=== PATIENT | male | born 1955 | race Caucasian/White ===

== ENCOUNTER 2017-05-01 13:52 | Inpatient (IN) | payer OTHER ==
[~2017-05-01] VITALS: Ht 180.3 cm; Wt 128.0 kg
[~2017-05-01 13:52] MED LIST: ALLO300T2 PO; CHOL100027 PO; FENO145T26 PO; HYDR-4717 PO; LSN/20125 PO; METO-551 PO; POTA-327 PO; SIMV20TA2 PO
[2017-05-01] MEDS ORDERED: SODIUM CHLORIDE 0.9% 1000ML 2,000 ML IV STA (14:01)
--- NOTE | 2017-05-01 14:37 | EMERGENCY ROOM VISIT NOTE ---
History Report prepared by Ector: Steven Bay Under the Supervision of: Dr. Lucas Cheng M.D. First contact with patient: 13:59 Chief Complaint: HYPERGLYCEMIA Stated Complaint: HYPERGLYCEMIA History of Present Illness The patient is a 61 year old male who presents to the Emergency Room with complaints of intermittent lightheadedness beginning two months ago. He was seen by his PCP just prior to arrival for his symptoms and had blood work done. His blood sugar was found to be 712 at this time. The patient has no known history of diabetes. He states that he has been drinking a lot of water, and urinating very frequently. His lightheadedness is worsened with changing positions, especially standing up. The patient denies new cough or leg swelling. He is not on any blood thinners. He has a history of HTN and hyperlipidemia. Source of History: patient Onset: Two months ago Quality: other (lightheadedness) Timing: intermittent Modifying Factors (Worsening): other (changing position) Associated Symptoms: No cough (new) Note: The patient denies leg swelling. Review of Systems See HPI for pertinent positives & negatives. A total of 10 systems reviewed and were otherwise negative. Past Medical & Surgical Medical Problems: (1) CKD (chronic kidney disease), stage III (2) DKA (diabetic ketoacidoses) (3) HLD (hyperlipidemia) (4) HTN (hypertension) (5) GISELE (obstructive sleep apnea) Surgical Problems: (1) History of ureter stent (2) History of ureter stent (3) Hx of carpal tunnel repair (4) Hx of carpal tunnel repair (5) Hx of cervical spine surgery (6) Hx of cholecystectomy (7) Hx of cholecystectomy (8) Hx of lumbosacral spine surgery (9) Hx of nasal septoplasty (10) Hx of ventral hernia repair (11) Hx of ventral hernia repair Family History No pertinent family history stated. Social History Smoking Status: Never Smoker Marital Status: Current/Historical Medications Scheduled Allopurinol (Zyloprim), 450 MG PO DAILY Atorvastatin (Lipitor), 10 MG PO DAILY Cholecalciferol (Vitamin D), 2,000 UNITS PO DAILY Diltiazem HCl Coated Beads (Diltiazem HCl ER), 300 MG PO QPM Doxazosin Mesylate (Cardura), 8 MG PO HS Fenofibrate (Tricor ), 145 MG PO DAILY Fluticasone Propionate (Nasal) (Flonase Allergy Relief), 2 SPRAY NA DAILY Furosemide (Lasix), 20 MG PO DAILY Gabapentin (Neurontin), 100 MG PO BID Hydralazine Hcl (Apresoline), 100 MG PO BID Lisinopril (Zestril), 40 MG PO DAILY Sildenafil Citrate (Revatio), 60 MG PO UD Scheduled PRN Hkqecrm-Eclrozkorexjl-Vbmfrybs (Excedrin Migraine), 1-2 TAB PO DAILY PRN for Migraine Sumatriptan Succinate (Imitrex), 50 MG PO PRN PRN for Migraine Allergies Coded Allergies: Propranolol (Verified Adverse Reaction, Unknown, nausea (per gmg office note), 05/01/17) Physical Exam Vital Signs Date Time Temp Pulse Resp B/P (MAP) Pulse Ox O2 Delivery O2 Flow Rate FiO2 05/01/17 16:00 76 18 164/102 95 Room Air 05/01/17 14:27 78 05/01/17 14:26 81 209/118 76 201/123 94 176/130 05/01/17 14:22 94 Room Air 05/01/17 13:56 36.9 96 18 202/107 94 Room Air Physical Exam GENERAL: Patient is in no acute distress. HEENT: No acute trauma, normocephalic atraumatic, mucous membranes markedly dry , no nasal congestion, no scleral icterus. NECK: No stridor, no adenopathy, no meningismus, trachea is midline. LUNGS: Clear to auscultation bilaterally, no wheeze, no rhonchi, breath sounds equal. HEART: Without murmurs gallops or rubs, regular rate and rhythm. ABDOMEN: Soft, nontender, bowel sounds positive, no hernias, no peritonitis. EXTREMITIES: No cyanosis or edema, full range of motion of all the joints without pain or difficulty, no signs for acute trauma. NEUROLOGIC: Oriented x 3, no acute motor or sensory deficits, no focal weakness. SKIN: No rash, no jaundice, no diaphoresis. Medical Decision & Procedures ER Provider Diagnostic Interpretation: X-ray results as stated below per interpretation by me and the radiologist: CHEST ONE VIEW PORTABLE FINDINGS: The heart is mildly enlarged. The lungs are clear. No pleural effusions. No pneumothorax. No evidence for pulmonary edema. IMPRESSION: Mild cardiomegaly. Electronically signed by: Ramon Arrington M.D. 05/01/2017 2:37 PM Orthostatic vital signs are positive. Laboratory Results 05/01/17 14:10 Test 05/01/17 14:10 05/01/17 14:45 RDW Standard Deviation 42.7 fL (36.4-46.3) RDW Coefficient of Variation 13.9 % (11.5-14.5) White Blood Count 7.96 K/uL (4.8-10.8) Red Blood Count 5.11 M/uL (4.7-6.1) Hemoglobin 15.3 g/dL (14.0-18.0) Hematocrit 43.1 % (42-52) Mean Corpuscular Volume 84.3 fL (80-100) Mean Corpuscular Hemoglobin 29.9 pg (25-34) Mean Corpuscular Hemoglobin Concent 35.5 g/dl (32-36) Platelet Count 170 K/uL (130-400) Mean Platelet Volume 10.8 fL (7.4-10.4) Neutrophils (%) (Auto) 89.5 % Lymphocytes (%) (Auto) 5.8 % Monocytes (%) (Auto) 3.8 % Eosinophils (%) (Auto) 0.3 % Basophils (%) (Auto) 0.1 % Neutrophils # (Auto) 7.13 K/uL (1.4-6.5) Lymphocytes # (Auto) 0.46 K/uL (1.2-3.4) Monocytes # (Auto) 0.30 K/uL (0.11-0.59) Eosinophils # (Auto) 0.02 K/uL (0-0.5) Basophils # (Auto) 0.01 K/uL (0-0.2) Immature Granulocyte % (Auto) 0.5 % Immature Granulocyte # (Auto) 0.04 K/uL (0.00-0.02) Anion Gap 15.0 mmol/L (3-11) Est Creatinine Clear Calc Drug Dose 53.1 ml/min Estimated GFR () 41.6 Estimated GFR (Non- 35.9 BUN/Creatinine Ratio 18.8 (10-20) Calcium Level 9.8 mg/dl (8.5-10.1) Phosphorus Level 4.5 mg/dl (2.5-4.9) Magnesium Level 2.3 mg/dl (1.8-2.4) Total Bilirubin 0.6 mg/dl (0.2-1) Aspartate Amino Transf (AST/SGOT) 10 U/L (15-37) Alanine Aminotransferase (ALT/SGPT) 39 U/L (12-78) Alkaline Phosphatase 101 U/L (45-117) Troponin I < 0.015 ng/ml (0-0.045) Total Protein 7.9 gm/dl (6.4-8.2) Albumin 4.1 gm/dl (3.4-5.0) Globulin 3.8 gm/dl (2.5-4.0) Albumin/Globulin Ratio 1.1 (0.9-2) Beta-Hydroxybutyric Acid 22.58 mg/dL (0.2-2.81) Thyroid Stimulating Hormone (TSH) 0.699 uIu/ml (0.300-4.500) Urine Color YELLOW Urine Appearance CLEAR (CLEAR) Urine pH 5.0 (4.5-7.5) Urine Specific [place] 1.040 (1.000-1.030) Urine Protein TRACE (NEG) Urine Glucose (UA) 3+ (NEG) Urine Ketones TRACE (NEG) Urine Occult Blood NEG (NEG) Urine Nitrite NEG (NEG) Urine Bilirubin NEG (NEG) Urine Urobilinogen NEG (NEG) Urine Leukocyte Esterase NEG (NEG) Urine WBC (Auto) 1-5 /hpf (0-5) Urine RBC (Auto) 0-4 /hpf (0-4) Urine Hyaline Casts (Auto) 0 /lpf (0-5) Urine Epithelial Cells (Auto) 5-10 /lpf (0-5) Urine Bacteria (Auto) NEG (NEG) Laboratory results reviewed by me. Medications Administered Medications (Trade) Dose Ordered Sig/Tsering Route Start Time Stop Time Status Last Admin Dose Admin Sodium Chloride 2,000 ml @ 999 mls/hr Q2H1M STAT IV 05/01/17 14:01 05/01/17 16:01 DC 05/01/17 14:31 999 MLS/HR Insulin Human Regular (novoLIN-R U-100 PER UNIT) 10 units NOW STAT IV 05/01/17 15:37 05/01/17 15:38 DC 05/01/17 15:49 10 UNITS Insulin Human Regular (novoLIN-R U-100 PER UNIT) 10 units NOW STAT IV 05/01/17 16:27 05/01/17 16:28 DC 05/01/17 17:05 10 UNITS ECG Indication: other (lightheadedness) Rate (beats per minute): 84 Rhythm: normal sinus Findings: RBBB, no ectopy, other (possible old inferior infarct) Comparison ECG Date: no prior available ED Course 1400: The patient was evaluated in room A12B. A complete history and physical exam was performed. 1401: Ordered Sodium Chloride 2000 ml @ 999 mls/hr IV. 1537: Ordered Novolin-R U-100 per unit 10 units IV. 1612: I reassessed the patient. He is unsure if he is willing to stay in the hospital. 1627: Ordered Novolin-R U-100 per unit 10 units IV. 1700: Upon reexamination the patient is resting comfortably. I discussed results and treatment plan with the patient. He verbalizes agreement and understanding. The patient will be evaluated for further management. Medical Decision The patient is a 61 year old male who presents to the ED with complaints of intermittent lightheadedness and hyperglycemia. Differential diagnoses considered include dehydration, electrolyte imbalance, DKA, hyperglycemia, infection, renal failure, pneumonia and orthostasis. There is no leukocytosis or concerning anemia. Renal panel testing does show some acute renal failure/dehydration. Sugar was quite high at over 600. No hepatitis. EKG shows a normal sinus rhythm with a right bundle branch block. No acute ischemia. Chest x-ray does not show pneumonia or CHF. Cardiac enzyme testing times one is not consistent with acute cardiac injury. Urinalysis does not show evidence for infection. The patient appears to be in a euthyroid state. On exam, the patient was not febrile or toxic. He appeared quite dehydrated clinically. Patient received 2 L of IV saline, he received IV insulin and then a second dose of IV insulin. Blood sugar is now around 500. Given the acute renal failure/dehydration, given the persistent hyperglycemia, given the new diagnosis of diabetes, a hospital stay was felt warranted. I spoke to the patient and the rn field case manager. The on-call hospitalist was consulted. The patient states he is feeling somewhat improved. Medication Reconcilliation Current Medication List: was personally reviewed by me Blood Pressure Screening Patient's blood pressure: Elevated blood pressure Blood pressure disposition: Referred to PCP Consults Time Called: [phone] Consulting Physician: María Elenagualberto Stark Returned Call: 1700 Discussed the patient's case. The patient will be evaluated for further management. Impression Primary Impression: Acute renal failure Additional Impressions: Hyperglycemia Dehydration HTN (hypertension) Scribe Attestation The scribe's documentation has been prepared under my direction and personally reviewed by me in its entirety. I confirm that the note above accurately reflects all work, treatment, procedures, and medical decision making performed by me. Departure Information Dispostion Being Evaluated By Hospitalist Referrals Kavon Mcleod D.O. (PCP) Patient Instructions My [facility] Problem Qualifiers
--- NOTE | 2017-05-01 14:39 | DIAGNOSTIC IMAGING REPORT ---
CHEST ONE VIEW PORTABLE HISTORY: EVALUATE ALTERED MENTAL STATUS/WEAKNESS COMPARISON: None. FINDINGS: The heart is mildly enlarged. The lungs are clear. No pleural effusions. No pneumothorax. No evidence for pulmonary edema. IMPRESSION: Mild cardiomegaly. Electronically signed by: Ramon Arrington M.D. 05/01/2017 2:37 PM Dictated Date/Time: 05/01/2017 2:35 PM
[2017-05-01 14:40] LABS: BASO % 0.1 %; BASO ABS # 0.01 K/uL (0-0.2); COMPLETE YES; EOS % 0.3 %; HEMATOCRIT 43.1 % (42-52); IG% 0.5 %; LYMPH % 5.8 %; LYMPH ABS # 0.46 K/uL (1.2-3.4); MEAN CELL VOLUME 84.3 fL (80-100); MEAN CORPUSCULAR HEMOGLOBIN 29.9 pg (25-34); MEAN CORPUSCULAR HGB CONC 35.5 g/dl (32-36); MEAN PLATELET VOLUME 10.8 fL (7.4-10.4); MONO % 3.8 %; NEUT % 89.5 %; PLATELET COUNT 170 K/uL (130-400); RED BLOOD COUNT 5.11 M/uL (4.7-6.1); WHITE BLOOD COUNT 7.96 K/uL (4.8-10.8)
[2017-05-01] MEDS ORDERED: ATOR10TA82 PO (14:55)
[2017-05-01] MEDS ORDERED: LISI40TA PO (14:55)
[2017-05-01] MEDS ORDERED: GABA-112 PO (14:55)
[2017-05-01] MEDS ORDERED: CHOL100010 PO (14:55)
[2017-05-01] MEDS ORDERED: HYDR100T12 PO (14:55)
[2017-05-01] MEDS ORDERED: ASPI-390 PO (14:55)
[2017-05-01] MEDS ORDERED: DOXA4TAB2 PO (14:55)
[2017-05-01] MEDS ORDERED: DILT1TAB52 PO (14:55)
[2017-05-01] MEDS ORDERED: FENO145T26 PO (14:55)
[2017-05-01] MEDS ORDERED: SILD1TAB25 PO (14:55)
[2017-05-01] MEDS ORDERED: FLUT0.15 (14:55)
[2017-05-01] MEDS ORDERED: ALLO300T2 PO (14:55)
[2017-05-01] MEDS ORDERED: SUMA50TA15 PO (14:55)
[2017-05-01] MEDS ORDERED: FURO-85 PO (14:55)
[2017-05-01 15:17] LABS: ALB/GLOB RATIO 1.1 (0.9-2); ALKALINE PHOSPHATASE 101 U/L (45-117); ALT/SGPT 39 U/L (12-78); AST/SGOT 10 U/L (15-37); BLOOD UREA NITROGEN 37 mg/dl (7-18); BUN/CREATININE RATIO 18.8 (10-20); CALCIUM 9.8 mg/dl (8.5-10.1); CARBON DIOXIDE 20 mmol/L (21-32); CHLORIDE 100 mmol/L (98-107); CREATININE 1.97 mg/dl (0.60-1.40); GLUCOSE 667 mg/dl (70-99); MAGNESIUM 2.3 mg/dl (1.8-2.4); POTASSIUM 3.9 mmol/L (3.5-5.1); SODIUM 135 mmol/L (136-145); THYROID STIMULATING HORMONE 0.699 uIu/ml (0.300-4.500)
[2017-05-01 15:27] LABS: URINE APPEARANCE CLEAR (CLEAR); URINE BILIRUBIN NEG (NEG); URINE COLOR YELLOW; URINE NITRITE NEG (NEG); UROBILINOGEN NEG (NEG); ZZUR CULT IF INDIC CLEAN CATCH NO
[2017-05-01 15:29] LABS: BETA-HYDROXYBUTYRATE 22.58 mg/dL (0.2-2.81)
[2017-05-01 15:30] LABS: MANUAL MICROSCOPIC REQUIRED? NO; REVIEW REQ? NO
[2017-05-01] MEDS ORDERED: NovoLIN-R INSULIN PER UNIT CHARGE IV STA ×2 (15:37→16:27)
[2017-05-01] MEDS ORDERED: PHARMACY GLYCEMIC MGMT CONSULT PRN (17:45)
[2017-05-01] MEDS ORDERED: PENDING NSS+20mEq KCL IVF SCH (17:45)
[2017-05-01] MEDS ORDERED: MODERATE STRESS LEVEL ONE (17:45)
[2017-05-01] MEDS ORDERED: PENDING D5NS+20mEq KCL IVF SCH (17:45)
[2017-05-01] MEDS ORDERED: DKA GOAL RANGE 150-250 mg/dl 1 EA ONE (17:45)
[2017-05-01] MEDS ORDERED: INSULIN IV INFUSION PROTOCOL SCH (17:48)
[2017-05-01] MEDS ORDERED: NSS + 20MEQ KCL 1000ML 1,000 ML IV SCH ×2 (18:00→18:15)
[2017-05-01] MEDS ORDERED: GLUCAGON FOR INJ 1 MG VIAL SQ PRN (18:15)
[2017-05-01] MEDS ORDERED: GLUCOSE 10 TABS/TUBE PO PRN (18:15)
[2017-05-01] MEDS ORDERED: GLUCOSE 40% GEL 15 GM TUBE PO PRN (18:15)
[2017-05-01] MEDS ORDERED: DEXTROSE 50% 50 ML SYR IV PRN (18:15)
[2017-05-01 18:30] VITALS: BP 158/104; PULSE 77; TEMP 36.9; O2SAT 97; BMI 38.7
[2017-05-01] MEDS ORDERED: INSULIN HUMAN REGULAR IV BOLUS 3 UNIT in SYRINGE 0 ML IV ONE (18:45)
[2017-05-01 18:48] LABS: ARTERIAL BLD GAS O2 SATURATION 94.4 % (90-95); ARTERIAL BLOOD GAS BASE EXCESS -0.3 mEq/L (-9-1.8); ARTERIAL BLOOD GAS HCO3 24 mmol/L (19-24); ARTERIAL BLOOD GAS PO2 72 mm/Hg (80-95); ARTERIAL BLOOD GAS pH 7.43 (7.35-7.45)
[2017-05-01 18:49] LABS: ALLEN TEST POS (POS); O2 ADMINISTRATION ROOM AIR
[2017-05-01] MEDS: INSULIN REGULAR 250 UNITS in SODIUM CHLORIDE 0.9% 250ML 250 ML IV SCH ×4 (18:56→22:01)
[2017-05-01 19:06] LABS: PHOSPHORUS 4.5 mg/dl (2.5-4.9)
--- NOTE | 2017-05-01 19:33 | History and Physical ---
History & Physical Date & Time of Service: May 01, 2017 at 18:03 Chief Complaint: Hyperglycemia Primary Care Physician: Kavon Mcleod D.O. History of Present Illness Source: patient, spouse, clinic records, hospital records Pt is 61y/o M with PMH obesity, HTN, dyslipidemia, gout, GISELE, CKD stage III, chronic MEDEROS's presented to ER from PCP office with c/o elevated blood sugar. No hx prior DM. Pt states past 2 months with intermittent dizziness and ill sensation. Past 3-4 weeks with polydipsia, polyuria. Past 2 weeks reports losing 15 pounds. Seen PCP today and BS >700 and pt reported to ER. Denies recent illness, recent steroid use, new medications. Hx chronic MEDEROS's, denies any MEDEROS currently or increased frequency or intensity. Denies fever/chills, diaphoresis, N/V/D/C, syncope, vision changes, neck pain, CP, SOB, orthopnea, palpitations, cough, sore throat, choking, otalgia, rhinorrhea, abdominal pain, paresthesias, weakness, extremity weakness, extremity edema, rashes, dysuria, hematuria. In ER BP: 202/107 down to 164/102, R: 18, P: 96 down to 76, O2: 94% on RA. initial BS 690. Pt given 2L NSS, 2 doses 10units insulin bolus. BS down to 416. Pt reports feeling better and less dizzy. No leukocytosis, corrected Na: 144, K: 3.9, anion gap: 15, BUN: 37, CR: 1.9 (baseline CR 1.6), beta hydroxybutyric acid: 22.5, U/A: trace ketones, magnesium: 2.3. pending ABG. EKG: NSR rate 84, RBBB. negative troponin Pt with hx dobutamine stress echo 02/2017: negative for inducible ischemia, EF: 50-54% Past Medical/Surgical History Medical Problems: (1) CKD (chronic kidney disease), stage III Status: Chronic (2) HLD (hyperlipidemia) Status: Chronic (3) HTN (hypertension) Status: Chronic (4) GISELE (obstructive sleep apnea) Status: Chronic Surgical Problems: (1) History of ureter stent Status: Resolved (2) Hx of carpal tunnel repair Permanent Comment: bilateral Status: Resolved (3) Hx of cervical spine surgery Status: Resolved (4) Hx of cholecystectomy Status: Resolved (5) Hx of ventral hernia repair Status: Resolved Family History FH: CAD (coronary artery disease) FATHER MOTHER (CAD, [place] in 80's -) FH: cancer FATHER (skin) Hypertension FATHER MOTHER Stroke FATHER Social History Smoking Status: Never Smoker Smokeless Tobacco Use: No Alcohol Use: none Drug Use: none Marital Status: Housing status: lives with significant other Occupational Status: employed Multi-Drug Resistant Organisms History of MDRO: No Allergies Coded Allergies: Propranolol (Verified Adverse Reaction, Unknown, nausea (per gmg office note), 05/01/17) Home Medications Scheduled Allopurinol (Zyloprim), 450 MG PO DAILY Atorvastatin (Lipitor), 10 MG PO DAILY Cholecalciferol (Vitamin D), 2,000 UNITS PO DAILY Diltiazem HCl Coated Beads (Diltiazem HCl ER), 300 MG PO QPM Doxazosin Mesylate (Cardura), 8 MG PO HS Fenofibrate (Tricor ), 145 MG PO DAILY Fluticasone Propionate (Nasal) (Flonase Allergy Relief), 2 SPRAY NA DAILY Furosemide (Lasix), 20 MG PO DAILY Gabapentin (Neurontin), 100 MG PO BID Hydralazine Hcl (Apresoline), 100 MG PO BID Lisinopril (Zestril), 40 MG PO DAILY Sildenafil Citrate (Revatio), 60 MG PO UD Scheduled PRN Ooonfph-Txoaczbqtftkj-Lmhixfja (Excedrin Migraine), 1-2 TAB PO DAILY PRN for Migraine Sumatriptan Succinate (Imitrex), 50 MG PO PRN PRN for Migraine Review of Systems See HPI for pertinent positives & negatives. All other systems reviewed and were otherwise negative Physical Exam Vital Signs Date Time Temp Pulse Resp B/P (MAP) Pulse Ox O2 Delivery O2 Flow Rate FiO2 05/01/17 17:56 78 18 158/104 94 05/01/17 17:51 78 18 158/104 94 Room Air 05/01/17 16:00 76 18 164/102 95 Room Air 05/01/17 14:27 78 05/01/17 14:26 81 209/118 76 201/123 94 176/130 05/01/17 14:22 94 Room Air 05/01/17 13:56 36.9 96 18 202/107 94 Room Air General Appearance: no apparent distress (pt very talkative), + obese Head: normocephalic, atraumatic Eyes: normal inspection, PERRL, EOMI, sclerae normal ENT: hearing grossly normal, + pertinent finding (no pharynx erythema, +dry mucous membranes) Neck: supple, no JVD, no carotid bruits Respiratory/Chest: chest non-tender, lungs clear, normal breath sounds, no respiratory distress, no accessory muscle use Cardiovascular: regular rate, rhythm, no edema, no murmur, normal peripheral pulses Abdomen/GI: normal bowel sounds, non tender, soft Extremities/Musculoskelatal: normal inspection, normal capillary refill, normal range of motion, non-tender Neurologic/Psych: alert, normal mood/affect, oriented x 3 Skin: normal color, warm/dry, no rash Diagnostics Laboratory Results Last 24 Hours Test 05/01/17 14:10 05/01/17 14:45 05/01/17 15:36 05/01/17 16:24 White Blood Count 7.96 K/uL Red Blood Count 5.11 M/uL Hemoglobin 15.3 g/dL Hematocrit 43.1 % Mean Corpuscular Volume 84.3 fL Mean Corpuscular Hemoglobin 29.9 pg Mean Corpuscular Hemoglobin Concent 35.5 g/dl Platelet Count 170 K/uL Mean Platelet Volume 10.8 fL Neutrophils (%) (Auto) 89.5 % Lymphocytes (%) (Auto) 5.8 % Monocytes (%) (Auto) 3.8 % Eosinophils (%) (Auto) 0.3 % Basophils (%) (Auto) 0.1 % Neutrophils # (Auto) 7.13 K/uL Lymphocytes # (Auto) 0.46 K/uL Monocytes # (Auto) 0.30 K/uL Eosinophils # (Auto) 0.02 K/uL Basophils # (Auto) 0.01 K/uL RDW Standard Deviation 42.7 fL RDW Coefficient of Variation 13.9 % Immature Granulocyte % (Auto) 0.5 % Immature Granulocyte # (Auto) 0.04 K/uL Sodium Level 135 mmol/L Potassium Level 3.9 mmol/L Chloride Level 100 mmol/L Carbon Dioxide Level 20 mmol/L Anion Gap 15.0 mmol/L Blood Urea Nitrogen 37 mg/dl Creatinine 1.97 mg/dl Est Creatinine Clear Calc Drug Dose 53.1 ml/min Estimated GFR () 41.6 Estimated GFR (Non- 35.9 BUN/Creatinine Ratio 18.8 Random Glucose 667 mg/dl Calcium Level 9.8 mg/dl Phosphorus Level 4.5 mg/dl Magnesium Level 2.3 mg/dl Total Bilirubin 0.6 mg/dl Aspartate Amino Transf (AST/SGOT) 10 U/L Alanine Aminotransferase (ALT/SGPT) 39 U/L Alkaline Phosphatase 101 U/L Troponin I < 0.015 ng/ml Total Protein 7.9 gm/dl Albumin 4.1 gm/dl Globulin 3.8 gm/dl Albumin/Globulin Ratio 1.1 Beta-Hydroxybutyric Acid 22.58 mg/dL Thyroid Stimulating Hormone (TSH) 0.699 uIu/ml Urine Color YELLOW Urine Appearance CLEAR Urine pH 5.0 Urine Specific [place] 1.040 Urine Protein TRACE Urine Glucose (UA) 3+ Urine Ketones TRACE Urine Occult Blood NEG Urine Nitrite NEG Urine Bilirubin NEG Urine Urobilinogen NEG Urine Leukocyte Esterase NEG Urine WBC (Auto) 1-5 /hpf Urine RBC (Auto) 0-4 /hpf Urine Hyaline Casts (Auto) 0 /lpf Urine Epithelial Cells (Auto) 5-10 /lpf Urine Bacteria (Auto) NEG Bedside Glucose 516 mg/dl 470 mg/dl Test 05/01/17 17:30 05/01/17 18:20 05/01/17 18:26 05/01/17 18:29 Bedside Glucose 416 mg/dl 395 mg/dl Arterial Blood pH 7.43 Arterial Blood Partial Pressure CO2 36 mmHg Arterial Blood Partial Pressure O2 72 mm/Hg Arterial Blood HCO3 24 mmol/L Arterial Blood Oxygen Saturation 94.4 % Arterial Blood Base Excess -0.3 mEq/L Arterial Blood Gas Delivery ROOM AIR Art Test POS Diagnostic Radiology CXR: IMPRESSION: Mild cardiomegaly EKG EKG: NSR, rate 84, RBBB EKG read by Dr Borrego: Normal sinus rhythm Right bundle branch block Cannot rule out Inferior infarct (cited on or before 14-JAN-1999) Abnormal ECG When compared with ECG of 14-JAN-1999 12:40, Right bundle branch block is now Present Confirmed by FRANCIE BORREGO ([id number]) on 05/01/2017 3:39:00 PM Impression Assessment and Plan DKA new onset diabetic, no source of infection, initial BS 690. Pt given 2L NSS IV and 2 bolus of insulin R 10units in ER with BS down to 416. Beta hydroxybutyric acid: 22.5, trace urine ketones, anion gap:15. K: 3.9. ABG: pH: 7.4, pCO2: 36, pO2: 72, HCO3: 24. ma.3, phosphorus: 4.5. corrected Na: 144 -Following DKA protocol: generous amount of fluids with K then transition to D5NS+K when BS<250 insulin drip -pharmacy glycemic consult -NPO until acidosis resolved -serial prp to monitor electrolytes -repeat phos & mag labs CKD STAGE III WITH TRINA baseline Cr: 1.6. today: Cr: 1.97 -avoid nephrotoxic agents HTN: 202/107 to 158/104. Continue to monitor. give pt evening doses -continue diltiazem -continue lisinopril -continue doxazosin -continue hydralazine -continue lasix DYSLIPIDEMIA lipid panel 2015: total: 161. LDL: 82, HDL: 38, Triglycerides:206 -fasting lipid panel in am -continue Lipitor -continue Tricor GISELE -CPAP HS as per home settings GOUT -continue allopurinol DVT PROPHYLAXIS -heparin SQ DISPOSITION -admit tele -Full Code -Follows with Dr Mcleod for routine care Pt was seen with Dr Easley. See addendum Attending physician Dr. Easley addendum I have seen and examined the patient with our team's hospitalist physician home health assistant and agree with the assessment and plan as above and would like to comment on the following that this is a 61 year old M with newly diagnosed diabetes and found to have DKA with anion gap of 15. Patient reports initial symptoms of confusion however when assessed by hospitalist team the patient's mental status is at baseline and this is observation is also supported by patient's family member's at the bedside. Patient does not have chest pain or shortness of breath. He has been urinating. Patient is to be on insulin drip with active pharmacy diabetes management consultation. Goals for overnight is to close the anion gap and maintain serum potassium levels above 3.3 while on insulin drip. Will perform q2 hour labs for glucose and repeat labs for anion gap over the night time. Level of Care Telemetry Resuscitation Status FULL RESUSCITATION VTE Prophylaxis VTE Risk Assessment Done? Y/N: Yes Risk Level: Moderate Given or contraindicated: Unfractionated heparin SQ Additional Copies To Kavon Mcleod D.O.
[2017-05-01 19:35] VITALS: BP 152/98
[2017-05-01 20:17] LABS: HEMATOCRIT 37.9 % (42-52); MEAN CELL VOLUME 83.3 fL (80-100); MEAN CORPUSCULAR HEMOGLOBIN 29.7 pg (25-34); MEAN CORPUSCULAR HGB CONC 35.6 g/dl (32-36); MEAN PLATELET VOLUME 10.1 fL (7.4-10.4); PLATELET COUNT 164 K/uL (130-400); RED BLOOD COUNT 4.55 M/uL (4.7-6.1); WHITE BLOOD COUNT 8.38 K/uL (4.8-10.8)
[2017-05-01 20:28] LABS: PROTHROMBIN TIME (PATIENT) 11.2 SECONDS (9.0-12.0)
[2017-05-01 20:43] LABS: BUN/CREATININE RATIO 17.7 (10-20); CALCIUM 8.8 mg/dl (8.5-10.1); CREATININE 1.61 mg/dl (0.60-1.40); POTASSIUM 3.6 mmol/L (3.5-5.1)
[2017-05-01 20:53] LABS: BETA-HYDROXYBUTYRATE 2.63 mg/dL (0.2-2.81)
[2017-05-01] MEDS ORDERED: DILTIAZEM HCL 120 MG ER CAP PO SCH (21:00)
[2017-05-01] MEDS ORDERED: POTASSIUM CHLORIDE 20 MEQ TABCR PO STA (21:07)
[2017-05-01] MEDS ORDERED: INFLUENZA VIRUS QUAD VACCINE 0.5 ML SYR IM. ONE (21:15)
[2017-05-01] MEDS ORDERED: INFLUENZA ADMINISTRATION CHARGE ONE (21:15)
[2017-05-01] MEDS ORDERED: LACTATED RINGER'S 1000ML 1,000 ML IV ONE (22:00)
[2017-05-01] MEDS: HEPARIN SOD 5000 UNIT/0.5 ML CARP SQ SCH (22:02)
[2017-05-01 22:03] VITALS: BP 161/102; PULSE 75
[2017-05-01] MEDS: DILTIAZEM HCL 120 MG ER CAP PO SCH (22:05)
[2017-05-01] MEDS: GABAPENTIN 100 MG CAP PO SCH (22:07)
[2017-05-01] MEDS: DOXAZosin MESYLATE TAB 4 MG TAB PO SCH (22:07)
[2017-05-01 22:08] VITALS: PULSE 61; O2SAT 95
[2017-05-01] MEDS: INSULIN ASPART 100 UNITS/ML 3 ML PEN SC SCH (22:58)
[2017-05-01] MEDS ORDERED: D5NSS + 20MEQ KCL 1,000 ML IV PRN (23:45)
[2017-05-02] VITALS (7 sets, daily range): BP systolic 134–155; BP diastolic 65–96; PULSE 61–84; TEMP 36.8–37.3; O2SAT 95–97; BMI 38.6
[2017-05-02] MEDS ORDERED: NURSING VERBAL MED ORDER ONE ×2 (02:15→10:30)
[2017-05-02] MEDS ORDERED: D5NSS + 20MEQ KCL 1,000 ML IV PRN (02:30)
[2017-05-02 06:02] LABS: HEMATOCRIT 38.7 % (42-52); MEAN CELL VOLUME 84.5 fL (80-100); MEAN CORPUSCULAR HEMOGLOBIN 29.5 pg (25-34); MEAN CORPUSCULAR HGB CONC 34.9 g/dl (32-36); MEAN PLATELET VOLUME 10.4 fL (7.4-10.4); PLATELET COUNT 170 K/uL (130-400); RED BLOOD COUNT 4.58 M/uL (4.7-6.1); WHITE BLOOD COUNT 7.73 K/uL (4.8-10.8)
[2017-05-02] MEDS: HEPARIN SOD 5000 UNIT/0.5 ML CARP SQ SCH (06:12)
[2017-05-02 06:40] LABS: CREATININE 1.37 mg/dl (0.60-1.40)
[2017-05-02 06:41] LABS: CALCIUM 8.9 mg/dl (8.5-10.1); POTASSIUM 3.6 mmol/L (3.5-5.1)
[2017-05-02 07:50] LABS: ESTIMATED AVERAGE GLUCOSE 223 mg/dl; HA1C FLAG Normal (Normal)
[2017-05-02] MEDS: INSULIN ASPART 100 UNITS/ML 3 ML PEN SC SCH ×4 (08:00→20:48)
[2017-05-02] MEDS ORDERED: FUROSEMIDE 20 MG TAB PO SCH (09:00)
[2017-05-02] MEDS: GABAPENTIN 100 MG CAP PO SCH ×2 (09:28→20:54)
[2017-05-02] MEDS: ATORVASTATIN 10 MG TAB PO SCH (09:29)
[2017-05-02] MEDS: ALLOPURINOL 300 MG TAB PO SCH (09:29)
[2017-05-02] MEDS: LISINOPRIL 40 MG TAB PO SCH (09:30)
[2017-05-02] MEDS: FENOFIBRATE 145 MG TAB PO SCH (09:30)
[2017-05-02] MEDS: ACETAMINOPHEN 325 MG TAB PO PRN (09:40)
--- NOTE | 2017-05-02 09:43 | Progress Note ---
Medicine Progress Note Date & Time of Visit: May 02, 2017 at 09:36. Subjective patient seen resting in bed, comfortable states he feels improved compared to yesterday not as weak, dizzy denies headache, dizziness, chest pain, dyspnea, abdominal pain ,nausea, problems with urination no other symptoms Objective Last 8 Hrs Date Time Temp Pulse Resp B/P (MAP) Pulse Ox O2 Delivery O2 Flow Rate FiO2 05/02/17 08:00 Room Air 05/02/17 07:13 36.8 62 18 154/88 (110) 96 Room Air 05/02/17 04:41 36.8 61 19 155/96 (115) 95 Room Air 05/02/17 04:00 Room Air Physical Exam: General- oriented x 3, not in distress, speaks in sentences with no effort Head- atraumatic Eyes- PERRL, EOMI, anicteric ENT- oropharynx clear Neck- supple, no JVD, no adenopathy, no thyromegaly; carotids +2/2, no bruits appreciated Lungs- clear to auscultation b/l Heart- regular rhythm; no murmur, normal rate Abdomen- normal bowel sounds, soft, nontender Extremities- no pretibial edema, no calf tenderness; peripheral pulses intact Neuro- alert, oriented x 3; PERRL, EOMI; no facial palsy; no dysarthria; motor 5 /5 bilaterally; no gross focal neuro deficits Skin- warm & dry Laboratory Results: Last 24 Hours Test 05/01/17 14:10 05/01/17 14:45 05/01/17 15:36 05/01/17 16:24 White Blood Count 7.96 K/uL Red Blood Count 5.11 M/uL Hemoglobin 15.3 g/dL Hematocrit 43.1 % Mean Corpuscular Volume 84.3 fL Mean Corpuscular Hemoglobin 29.9 pg Mean Corpuscular Hemoglobin Concent 35.5 g/dl Platelet Count 170 K/uL Mean Platelet Volume 10.8 fL Neutrophils (%) (Auto) 89.5 % Lymphocytes (%) (Auto) 5.8 % Monocytes (%) (Auto) 3.8 % Eosinophils (%) (Auto) 0.3 % Basophils (%) (Auto) 0.1 % Neutrophils # (Auto) 7.13 K/uL Lymphocytes # (Auto) 0.46 K/uL Monocytes # (Auto) 0.30 K/uL Eosinophils # (Auto) 0.02 K/uL Basophils # (Auto) 0.01 K/uL RDW Standard Deviation 42.7 fL RDW Coefficient of Variation 13.9 % Immature Granulocyte % (Auto) 0.5 % Immature Granulocyte # (Auto) 0.04 K/uL Sodium Level 135 mmol/L Potassium Level 3.9 mmol/L Chloride Level 100 mmol/L Carbon Dioxide Level 20 mmol/L Anion Gap 15.0 mmol/L Blood Urea Nitrogen 37 mg/dl Creatinine 1.97 mg/dl Est Creatinine Clear Calc Drug Dose 53.1 ml/min Estimated GFR () 41.6 Estimated GFR (Non- 35.9 BUN/Creatinine Ratio 18.8 Random Glucose 667 mg/dl Estimated Average Glucose 223 mg/dl Hemoglobin A1c 9.4 % Calcium Level 9.8 mg/dl Phosphorus Level 4.5 mg/dl Magnesium Level 2.3 mg/dl Total Bilirubin 0.6 mg/dl Aspartate Amino Transf (AST/SGOT) 10 U/L Alanine Aminotransferase (ALT/SGPT) 39 U/L Alkaline Phosphatase 101 U/L Troponin I < 0.015 ng/ml Total Protein 7.9 gm/dl Albumin 4.1 gm/dl Globulin 3.8 gm/dl Albumin/Globulin Ratio 1.1 Beta-Hydroxybutyric Acid 22.58 mg/dL Thyroid Stimulating Hormone (TSH) 0.699 uIu/ml Urine Color YELLOW Urine Appearance CLEAR Urine pH 5.0 Urine Specific [place] 1.040 Urine Protein TRACE Urine Glucose (UA) 3+ Urine Ketones TRACE Urine Occult Blood NEG Urine Nitrite NEG Urine Bilirubin NEG Urine Urobilinogen NEG Urine Leukocyte Esterase NEG Urine WBC (Auto) 1-5 /hpf Urine RBC (Auto) 0-4 /hpf Urine Hyaline Casts (Auto) 0 /lpf Urine Epithelial Cells (Auto) 5-10 /lpf Urine Bacteria (Auto) NEG Bedside Glucose 516 mg/dl 470 mg/dl Test 05/01/17 17:30 05/01/17 18:20 05/01/17 18:29 05/01/17 20:09 Bedside Glucose 416 mg/dl 395 mg/dl Arterial Blood pH 7.43 Arterial Blood Partial Pressure CO2 36 mmHg Arterial Blood Partial Pressure O2 72 mm/Hg Arterial Blood HCO3 24 mmol/L Arterial Blood Oxygen Saturation 94.4 % Arterial Blood Base Excess -0.3 mEq/L Arterial Blood Gas Delivery ROOM AIR Art Test POS White Blood Count 8.38 K/uL Red Blood Count 4.55 M/uL Hemoglobin 13.5 g/dL Hematocrit 37.9 % Mean Corpuscular Volume 83.3 fL Mean Corpuscular Hemoglobin 29.7 pg Mean Corpuscular Hemoglobin Concent 35.6 g/dl RDW Standard Deviation 41.9 fL RDW Coefficient of Variation 13.9 % Platelet Count 164 K/uL Mean Platelet Volume 10.1 fL Prothrombin Time 11.2 SECONDS Prothromb Time International Ratio 1.0 Sodium Level 140 mmol/L Potassium Level 3.6 mmol/L Chloride Level 108 mmol/L Carbon Dioxide Level 24 mmol/L Anion Gap 8.0 mmol/L Blood Urea Nitrogen 29 mg/dl Creatinine 1.61 mg/dl Est Creatinine Clear Calc Drug Dose 65.9 ml/min Estimated GFR () 53.1 Estimated GFR (Non- 45.8 BUN/Creatinine Ratio 17.7 Random Glucose 340 mg/dl Calcium Level 8.8 mg/dl Beta-Hydroxybutyric Acid 2.63 mg/dL Test 05/02/17 00:07 05/02/17 01:59 05/02/17 04:02 05/02/17 05:30 Bedside Glucose 209 mg/dl 163 mg/dl 157 mg/dl White Blood Count 7.73 K/uL Red Blood Count 4.58 M/uL Hemoglobin 13.5 g/dL Hematocrit 38.7 % Mean Corpuscular Volume 84.5 fL Mean Corpuscular Hemoglobin 29.5 pg Mean Corpuscular Hemoglobin Concent 34.9 g/dl RDW Standard Deviation 43.2 fL RDW Coefficient of Variation 14.0 % Platelet Count 170 K/uL Mean Platelet Volume 10.4 fL Sodium Level 143 mmol/L Potassium Level 3.6 mmol/L Chloride Level 111 mmol/L Carbon Dioxide Level 25 mmol/L Anion Gap 7.0 mmol/L Blood Urea Nitrogen 23 mg/dl Creatinine 1.37 mg/dl Est Creatinine Clear Calc Drug Dose 77.3 ml/min Estimated GFR () 64.5 Estimated GFR (Non- 55.7 BUN/Creatinine Ratio 17.0 Random Glucose 169 mg/dl Calcium Level 8.9 mg/dl Test 05/02/17 06:10 Bedside Glucose 155 mg/dl Assessment & Plan 61 year old male with history of HTN, CKD 3, GISELE, presenting with elevated blood glucose. NEW ONSET DIABETES MELLITUS 2 LIKELY HYPERGLYCEMIC HYPEROSMOLAR SYNDROME new onset diabetic, no source of infection, initial BS 690. Pt given 2L NSS IV and 2 bolus of insulin R 10units in ER with BS down to 416. Beta hydroxybutyric acid: 22.5, trace urine ketones, anion gap:15. K: 3.9. ABG: pH: 7.4, pCO2: 36, pO2: 72, HCO3: 24. ma.3, phosphorus: 4.5. corrected Na: 144 -- Gap closed, BSG <200 to be transitioned from Insulin drip to Lantus today change fluids to NSS -- Professional Engineer consulted PT ordered -- patient agreeable to be discharged on Insulin CKD STAGE III WITH TRINA baseline Cr: 1.6. --> Cr: 1.97 -- back to baseline continue NSS HTN: 202/107 to 158/104. Continue to monitor. give pt evening doses -continue diltiazem -continue lisinopril -continue doxazosin -continue hydralazine -- HOLD Lasix monitor BP DYSLIPIDEMIA -continue Lipitor -continue Tricor - Lipid panel pending GISELE -CPAP HS as per home settings GOUT -continue allopurinol DVT PROPHYLAXIS Lovenox DISPOSITION anticipate d/c home tomorrow will need Insulin Lantus on discharge ff up with PCP in 1 week Current Inpatient Medications: Current Inpatient Medications Medications (Trade) Dose Ordered Sig/Tsering Route Start Time Stop Time Status Last Admin Dose Admin Insulin Aspart (novoLOG ASPART) SLIDING SCALE [facility] SC 05/01/17 18:09 05/31/17 18:59 Miscellaneous Information (Consult Glycemic Management Pharmacy) 1 ea UD PRN N/A 05/01/17 17:45 05/31/17 17:44 Heparin Sodium (Porcine) (Heparin Sq 5000 Unit/0.5ml) 5,000 unit Q8 SQ 05/01/17 22:00 05/31/17 21:59 05/02/17 06:12 5,000 UNIT Acetaminophen (Tylenol Tab) 650 mg Q4H PRN PO 05/01/17 17:45 05/31/17 17:44 Allopurinol (Zyloprim Tab) 450 mg DAILY PO 05/02/17 09:00 06/01/17 08:59 05/02/17 09:29 450 MG Atorvastatin Calcium (Lipitor Tab) 10 mg DAILY PO 05/02/17 09:00 06/01/17 08:59 05/02/17 09:29 10 MG Doxazosin Mesylate (Cardura Tab) 8 mg HS PO 05/01/17 21:00 05/31/17 20:59 05/01/17 22:07 8 MG Fenofibrate (Tricor Tab) 145 mg DAILY PO 05/02/17 09:00 06/01/17 08:59 05/02/17 09:30 145 MG Gabapentin (Neurontin Cap) 100 mg BID PO 05/01/17 21:00 05/31/17 20:59 05/02/17 09:28 100 MG Hydralazine HCl (Apresoline Tab) 100 mg BID PO 05/01/17 21:00 05/31/17 20:59 05/02/17 09:29 100 MG Lisinopril (Zestril Tab) 40 mg DAILY PO 05/02/17 09:00 06/01/17 08:59 05/02/17 09:30 40 MG Glucose (Glucose 40% Gel) UD PRN PO 05/01/17 18:15 05/31/17 18:14 Glucose (Glucose Chew Tab) 1 tabs UD PRN PO 05/01/17 18:15 05/31/17 18:14 Dextrose (Dextrose 50% 50ML Syringe) 50 ml UD PRN IV 05/01/17 18:15 05/31/17 18:14 Glucagon (Glucagon Inj) 1 mg UD PRN SQ 05/01/17 18:15 05/31/17 18:14 Insulin Human Regular 250 units/ Sodium Chloride 252.5 ml @ 0 mls/hr Q24H IV 05/01/17 18:45 05/31/17 18:44 05/01/17 22:01 3.2 MLS/HR Diltiazem HCl (Dilacor Xr Cap) 240 mg QPM PO 05/02/17 21:00 05/31/17 20:59 05/01/17 22:05 240 MG Potassium Chloride/Dextrose/ Sod Cl 1,000 ml @ 75 mls/hr [id number] PRN IV 05/02/17 02:30 06/01/17 02:29 05/02/17 02:29 75 MLS/HR
[2017-05-02] MEDS ORDERED: INSULIN GLARGINE SOLOSTAR 100 UNITS/ML 3 ML PEN SC ONE (10:00)
[2017-05-02] MEDS: INSULIN REGULAR 250 UNITS in SODIUM CHLORIDE 0.9% 250ML 250 ML IV SCH (10:30)
[2017-05-02] MEDS: NSS + 20MEQ KCL 1000ML 1,000 ML IV SCH (10:31)
--- NOTE | 2017-05-02 11:22 | Pharmacy Progress Note ---
Glycemic Control Intl Consult Date of Service May 02, 2017. Scope Glycemic Pharmacist consulted on 05/01/17 for glycemic control and to write orders per [facility] inpatient glycemic control protocol Objective Weight (Kilograms): 125.500 Accuchecks BSG (last 24hrs): Test 05/01/17 14:10 05/01/17 15:36 05/01/17 16:24 05/01/17 17:30 Random Glucose 667 mg/dl (70-99) Bedside Glucose 516 mg/dl (70-99) 470 mg/dl (70-99) 416 mg/dl (70-99) Test 05/01/17 18:20 05/01/17 20:09 05/02/17 00:07 05/02/17 01:59 Bedside Glucose 395 mg/dl (70-99) 209 mg/dl (70-99) 163 mg/dl (70-99) Random Glucose 340 mg/dl (70-99) Test 05/02/17 04:02 05/02/17 05:30 05/02/17 06:10 05/02/17 10:16 Bedside Glucose 157 mg/dl (70-99) 155 mg/dl (70-99) 227 mg/dl (70-99) Random Glucose 169 mg/dl (70-99) Laboratory Data (last 24hrs) Test 05/01/17 14:10 05/01/17 20:09 05/02/17 05:30 Anion Gap 15.0 mmol/L 8.0 mmol/L 7.0 mmol/L BUN/Creatinine Ratio 18.8 17.7 17.0 Blood Urea Nitrogen 37 mg/dl 29 mg/dl 23 mg/dl Creatinine 1.97 mg/dl 1.61 mg/dl 1.37 mg/dl Hemoglobin A1c 9.4 % Potassium Level 3.9 mmol/L 3.6 mmol/L 3.6 mmol/L Sodium Level 135 mmol/L 140 mmol/L 143 mmol/L White Blood Count 7.96 K/uL 8.38 K/uL 7.73 K/uL Red Blood Count 5.11 M/uL Hemoglobin 15.3 g/dL Hematocrit 43.1 % Mean Corpuscular Volume 84.3 fL Mean Corpuscular Hemoglobin 29.9 pg Mean Corpuscular Hemoglobin Concent 35.5 g/dl Platelet Count 170 K/uL Mean Platelet Volume 10.8 fL Neutrophils (%) (Auto) 89.5 % Lymphocytes (%) (Auto) 5.8 % Monocytes (%) (Auto) 3.8 % Eosinophils (%) (Auto) 0.3 % Basophils (%) (Auto) 0.1 % Neutrophils # (Auto) 7.13 K/uL Lymphocytes # (Auto) 0.46 K/uL Monocytes # (Auto) 0.30 K/uL Eosinophils # (Auto) 0.02 K/uL Basophils # (Auto) 0.01 K/uL HbA1c Test 05/01/17 14:10 Hemoglobin A1c 9.4 % (4.5-5.6) H Recent Pertinent Medications Outpatient Anti-diabetic Regimen: * N/A The patient is currently receiving: * Insulin drip per DKA protocol Assessment & Plan ASSESSMENT: * 61 yo M admitted yesterday afternoon with severe hyperglycemia/mild DKA * A1c this AM 9.4% indicative of diabetes which is a new diagnosis for patient * Insulin drip initiated per protocol * BSGs have trended down nicely within goal range and drip has been stable at ~ 3 units/hr for the past 4 hours * Spoke with MD * Pt on board for Lantus on discharge - so start transition today * Change IV fluids from D5NS + 20 KCL to NS + 20 KCL to make transition easier * Spoke with nurse * Did not realize she needed to use [facility] entry for breakfast coverage - pt ate with no SQ Novolog so expect BSGs to rise after breakfast * Plan will be to initiate wt based/stress of 3 basal bolus regimen now, and loosen tomorrow if necessary (anticipate patient to be initially resistant) PLAN FOR INPATIENT GLYCEMIC CONTROL: * Continue IV insulin drip per protocol and D/C @1600 - ~6 hrs after Lantus given * Basal insulin with LANTUS 60 units SQ X 1 * Continue Lantus BID based on BSG trend tonight * <100=0, 100-140=10, 140-180=20, >180=30 * Correctional Insulin with NOVOLOG per scale ACHS + 00,04 checks * Goal Range: Low 110 mg/dL - High 150 mg/dL * Correction Factor: 15 mg/dL/unit * Nutritional / Prandial insulin per carb ratio of 1 unit per 4 grams CHO consumed LOOKING AHEAD TO DISCHARGE: * Will recommend wt based approach and change Lantus to daily * Dosing TBD based on BSG trend over the next 24 hours * Please note that the plan above was derived based on current level of insulin resistance and hospital stress. These recommendations are appropriate for inpatient admission only. Plan of care upon discharge will need to be reassessed to avoid potential outpatient hypo/hyperglycemia. Thank you.
[2017-05-02] MEDS ORDERED: DC IV INSULIN INFUSION ONE (16:00)
[2017-05-02] MEDS: DOXAZosin MESYLATE TAB 4 MG TAB PO SCH (20:53)
[2017-05-02] MEDS: DILTIAZEM HCL 120 MG ER CAP PO SCH (20:53)
[2017-05-02] MEDS ORDERED: INSULIN GLARGINE SOLOSTAR 100 UNITS/ML 3 ML PEN SC SCH (21:00)
[2017-05-03 00:10] VITALS: BP 134/73; PULSE 19; PULSE 76; TEMP 37; O2SAT 98
[2017-05-03] MEDS: NSS + 20MEQ KCL 1000ML 1,000 ML IV SCH (02:30)
[2017-05-03] MEDS: INSULIN ASPART 100 UNITS/ML 3 ML PEN SC SCH ×4 (03:46→11:57)
[2017-05-03 03:47] VITALS: BP 133/73; PULSE 63; TEMP 36.7; O2SAT 96
[2017-05-03] MEDS: ACETAMINOPHEN 325 MG TAB PO PRN (04:11)
[2017-05-03 06:22] LABS: BUN/CREATININE RATIO 12.4 (10-20); CALCIUM 8.3 mg/dl (8.5-10.1); CREATININE 1.35 mg/dl (0.60-1.40); MAGNESIUM 1.7 mg/dl (1.8-2.4); POTASSIUM 3.4 mmol/L (3.5-5.1)
[2017-05-03 06:25] LABS: CHOLESTEROL/HDL RATIO 5.1
[2017-05-03 07:11] VITALS: BP 148/94; PULSE 57; TEMP 36.9; O2SAT 96
[2017-05-03] MEDS: FENOFIBRATE 145 MG TAB PO SCH (08:33)
[2017-05-03] MEDS: GABAPENTIN 100 MG CAP PO SCH (08:33)
[2017-05-03] MEDS: ATORVASTATIN 10 MG TAB PO SCH (08:35)
[2017-05-03] MEDS: ALLOPURINOL 300 MG TAB PO SCH (08:35)
[2017-05-03] MEDS: LISINOPRIL 40 MG TAB PO SCH (08:35)
[2017-05-03] MEDS ORDERED: POTASSIUM CHLORIDE 20 MEQ TABCR PO SCH (09:00)
[2017-05-03] MEDS ORDERED: ENOXAPARIN 40 MG/0.4 ML SYR SQ SCH (09:00)
[2017-05-03] MEDS ORDERED: MAGNESIUM OXIDE 400 MG TAB PO SCH (09:00)
[2017-05-03] MEDS ORDERED: INSULIN GLARGINE SOLOSTAR 100 UNITS/ML 3 ML PEN SC SCH ×2 (09:00)
[2017-05-03] MEDS ORDERED: NITROGLYCERIN 0.6 MG/HR PATCH TD SCH (09:00)
--- NOTE | 2017-05-03 10:57 | Pharmacy Progress Note ---
Pharmacy Glycemic Short Note 2 Date of Service May 03, 2017. OUTPATIENT ANTIDIABETIC REGIMEN: * N/A ASSESSMENT: * 61 yo M receiving basal bolus regimen s/p insulin infusion due to new onset diabetes * A1c 9.4% and patient agreeable to insulin on discharge * Pt received a total of 98 units SQ in addition to IV insulin drip over the past 24 hours * Plan is for patient to be discharged home today so those recommendations will be included below PLAN FOR INPATIENT GLYCEMIC CONTROL: * Basal insulin * Lantus 50 units SQ daily - reassess need for a dose tonight if patient remains admitted * Bolus insulin * NovoLog per scale ACHS or Q6hrs while NPO * Goal Range: Low 110 mg/dL - High 150 mg/dL * Correction Factor: 15 mg/dL/unit * Nutritional / Prandial insulin per carb ratio of 1 unit per 4 grams CHO consumed PLAN FOR DISCHARGE: * Pt agreeable to insulin on discharge and has follow up with PCP in 1 week * Recommend Lantus 50 units daily to start with * Please check BSGs in the AM and prior to meals and keep log of BSGs to take to PCP appointment
[2017-05-03 11:34] VITALS: BP_SYST 157; BP_SYST 169; BP_DIAS 98; PULSE 72; TEMP 36.9; O2SAT 97
[2017-05-03 14:28] VITALS: Ht 180.3 cm; Wt 128.0 kg
--- NOTE | 2017-05-03 15:04 | Progress Note ---
Medicine Progress Note Date & Time of Visit: May 03, 2017 at 14:59. Subjective patient seen resting in bed, comfortable at bedside states he feels much better overall has some dizziness this AM, but improving denies headache, blurred vision, chest pain, dyspnea, abdominal pain, palpitations denies other symptoms states he is ready and would like to be discharged today Objective Last 8 Hrs Date Time Temp Pulse Resp B/P (MAP) Pulse Ox O2 Delivery O2 Flow Rate FiO2 05/03/17 12:00 Room Air 05/03/17 11:34 36.9 72 20 157/98 (117) 97 Room Air 169/98 (121) 05/03/17 08:00 Room Air 05/03/17 07:11 36.9 57 20 148/94 (112) 96 Physical Exam: General- oriented x 3, not in distress, speaks in sentences with no effort Eyes- anicteric ENT- oropharynx clear Neck- supple, no JVD Lungs- clear breath sounds bilaterally, no rales/wheezes Heart- regular rhythm; no murmur, normal rate Abdomen- normal bowel sounds, soft, nontender Extremities- no pretibial edema, no calf tenderness; peripheral pulses intact Neuro- alert, oriented x 3; no gross focal deficits Skin- warm & dry Laboratory Results: Last 24 Hours Test 05/02/17 16:32 05/02/17 20:30 05/03/17 00:12 05/03/17 03:42 Bedside Glucose 102 mg/dl 174 mg/dl 111 mg/dl 129 mg/dl Test 05/03/17 05:20 05/03/17 06:38 05/03/17 11:33 Sodium Level 143 mmol/L Potassium Level 3.4 mmol/L Chloride Level 108 mmol/L Carbon Dioxide Level 25 mmol/L Anion Gap 10.0 mmol/L Blood Urea Nitrogen 17 mg/dl Creatinine 1.35 mg/dl Est Creatinine Clear Calc Drug Dose 79.3 ml/min Estimated GFR () 65.7 Estimated GFR (Non- 56.7 BUN/Creatinine Ratio 12.4 Random Glucose 162 mg/dl Calcium Level 8.3 mg/dl Magnesium Level 1.7 mg/dl Triglycerides Level 381 mg/dl Cholesterol Level 188 mg/dl HDL Cholesterol 37 mg/dl LDL Cholesterol, Calculated 75 mg/dl VLDL Cholesterol, Calculated 76 mg/dl Cholesterol/HDL Ratio 5.1 Bedside Glucose 159 mg/dl 201 mg/dl Assessment & Plan 61 year old male with history of HTN, CKD 3, GISELE, presenting with elevated blood glucose. NEW ONSET DIABETES MELLITUS 2 LIKELY HYPERGLYCEMIC HYPEROSMOLAR SYNDROME new onset diabetic, no source of infection, initial BS 690. Pt given 2L NSS IV and 2 bolus of insulin R 10units in ER with BS down to 416. Beta hydroxybutyric acid: 22.5, trace urine ketones, anion gap:15. K: 3.9. ABG: pH: 7.4, pCO2: 36, pO2: 72, HCO3: 24. ma.3, phosphorus: 4.5. corrected Na: 144 -- Gap closed, BSG <200 transitioned from Insulin drip to Lantus change fluids to NSS -- Slitter Service And Setter consulted PT ordered -- discussed with Pharmacy Glycemic Control SVC discharge on Lantus 50 units in HS advised to record BSG in AM and AC, call PCP in f BSG high 200s , adhere to DM diet CKD STAGE III WITH TRINA baseline Cr: 1.6. --> Cr: 1.97 -- back to baseline after IV NSS HTN: 202/107 to 158/104 -continue diltiazem -continue lisinopril -continue doxazosin -continue hydralazine DYSLIPIDEMIA - LDL 75 TG 381 -continue Lipitor -continue Tricor - advised low fat, carb diet monitor as outpatient GISELE -CPAP HS as per home settings GOUT -continue allopurinol DVT PROPHYLAXIS Lovenox given DISPOSITION d/c home ff up with PCP in 1 week Current Inpatient Medications: Current Inpatient Medications Medications (Trade) Dose Ordered Sig/Tseirng Route Start Time Stop Time Status Last Admin Dose Admin Miscellaneous Information (Consult Glycemic Management Pharmacy) 1 ea UD PRN N/A 05/01/17 17:45 05/31/17 17:44 Acetaminophen (Tylenol Tab) 650 mg Q4H PRN PO 05/01/17 17:45 05/31/17 17:44 05/03/17 04:11 650 MG Allopurinol (Zyloprim Tab) 450 mg DAILY PO 05/02/17 09:00 06/01/17 08:59 05/03/17 08:35 450 MG Atorvastatin Calcium (Lipitor Tab) 10 mg DAILY PO 05/02/17 09:00 06/01/17 08:59 05/03/17 08:35 10 MG Doxazosin Mesylate (Cardura Tab) 8 mg HS PO 05/01/17 21:00 05/31/17 20:59 05/02/17 20:53 8 MG Fenofibrate (Tricor Tab) 145 mg DAILY PO 05/02/17 09:00 06/01/17 08:59 05/03/17 08:33 145 MG Gabapentin (Neurontin Cap) 100 mg BID PO 05/01/17 21:00 05/31/17 20:59 05/03/17 08:33 100 MG Hydralazine HCl (Apresoline Tab) 100 mg BID PO 05/01/17 21:00 05/31/17 20:59 05/03/17 08:34 100 MG Lisinopril (Zestril Tab) 40 mg DAILY PO 05/02/17 09:00 06/01/17 08:59 05/03/17 08:35 40 MG Glucose (Glucose 40% Gel) UD PRN PO 05/01/17 18:15 05/31/17 18:14 Glucose (Glucose Chew Tab) 1 tabs UD PRN PO 05/01/17 18:15 05/31/17 18:14 Dextrose (Dextrose 50% 50ML Syringe) 50 ml UD PRN IV 05/01/17 18:15 05/31/17 18:14 Glucagon (Glucagon Inj) 1 mg UD PRN SQ 05/01/17 18:15 05/31/17 18:14 Diltiazem HCl (Dilacor Xr Cap) 240 mg QPM PO 05/02/17 21:00 05/31/17 20:59 05/02/17 20:53 240 MG Potassium Chloride/Sodium Chloride 1,000 ml @ 75 mls/hr [id number] IV 05/02/17 10:30 06/01/17 10:29 05/03/17 02:30 75 MLS/HR Enoxaparin Sodium (Lovenox Inj) 40 mg QAM SQ 05/03/17 09:00 06/02/17 08:59 05/03/17 08:34 40 MG Insulin Aspart (novoLOG ASPART) SLIDING SCALE [facility] SC 05/02/17 16:15 06/01/17 16:14 05/03/17 11:57 15 UNITS Insulin Glargine (Lantus Solostar Pen) 50 units DAILY SC 05/03/17 09:00 06/02/17 08:59 05/03/17 08:39 50 UNITS Potassium Chloride (Klor-Con Tab) 40 meq QAM PO 05/03/17 09:00 06/02/17 08:59 05/03/17 08:33 40 MEQ Magnesium Oxide (Mag-Ox Tab) 400 mg BID PO 05/03/17 09:00 06/02/17 08:59 05/03/17 08:33 400 MG
[2017-05-03] MEDS ORDERED: MGNO400 PO (15:07)
[2017-05-03] MEDS ORDERED: MCRK20 PO ×2 (15:07→15:13)
[2017-05-03] MEDS ORDERED: INSDGIPEN SC (15:07)
--- NOTE | 2017-05-03 15:12 | Discharge Instructions ---
Discharge Instructions Date of Service May 03, 2017. Admission Reason for Admission: DKA Discharge Discharge Diagnosis / Problem: ELEVATE BLOOD GLUCOSE, NEW ONSET DIABETES MELLITUS Discharge Goals Goal(s): Diagnostic testing, Therapeutic intervention Activity Recommendations Activity Limitations: as noted below (INCREASE ACTIVITY GRADUALLY TOLERATED) Lifting Limitations: until after follow-up appointment Exercise/Sports Limitations: until after follow-up appointment Driving or Machine Use: NO DRIVING UNTIL RE-EVALUATED BY PRIMARY CARE PHYSICIAN . Instructions / Follow-Up Instructions / Follow-Up PLEASE REVIEW YOUR NEW MEDICATION LIST AND FOLLOW INSTRUCTIONS CAREFULLY. CALL PRIMARY CARE PHYSICIAN IMMEDIATELY IF YOUR BLOOD SUGAR IS ABOVE 250; OR IF YOU ARE HAVING RECURRENCE OF SYMPTOMS. ENSURE ADEQUATE DAILY FLUID INTAKE. FOLLOW UP WITH DR. MCCOLLUM ON Saturday05/08/17 AT 11:05 AM. Current Hospital Diet Patient's current hospital diet: Diabetes Type 2 Diet, AHA Diet (Heart Healthy) Discharge Diet Recommended Diet: AHA Diet (Heart Healthy), Diabetes Type 2 Diet Pending Studies Studies pending at discharge: no Laboratory Results Hemoglobin A1c Test 05/01/17 14:10 Range/Units Estimated Average Glucose 223 mg/dl Hemoglobin A1c 9.4 H 4.5-5.6 % Lipid Panel Test 05/03/17 05:20 Range/Units Triglycerides Level 381 H 0-150 mg/dl Cholesterol Level 188 0-200 mg/dl HDL Cholesterol 37 mg/dl Cholesterol/HDL Ratio 5.1 LDL Cholesterol, Calculated 75 mg/dl Medical Emergencies . Who to Call and When: Medical Emergencies: If at any time you feel your situation is an emergency, please call 911 immediately. . Non-Emergent Contact Non-Emergency issues call your: Primary Care Provider Call Non-Emergent contact if: you have a fever, you have any medication questions . . "Provider Documentation" section prepared by Julian Charles. . VTE Core Measure Inpt VTE Proph given/why not?: Unfractionated heparin SQ
--- NOTE | 2017-05-03 15:20 | Discharge Summary ---
Discharge Summary Date of Service May 03, 2017. Discharge Summary Admission Date: May 01, 2017 at 17:31 Discharge Date: May 03, 2017 Discharge Disposition: Home Principal Diagnosis: NEW ONSET DIABETES MELLITUS 2; LIKELY HYPERGLYCEMIC HYPEROSMOLAR SYNDROME Secondary Diagnoses/Problems: Please refer to hospital course below. Procedures: CHEST ONE VIEW PORTABLE HISTORY: EVALUATE ALTERED MENTAL STATUS/WEAKNESS COMPARISON: None. FINDINGS: The heart is mildly enlarged. The lungs are clear. No pleural effusions. No pneumothorax. No evidence for pulmonary edema. IMPRESSION: Mild cardiomegaly. Consultations: Pharmacy Glycemic Consult Pending Studies/Follow-Up: Please refer to hospital course below. Medication Reconciliation New Medications: Insulin Glargine (Lantus Solostar) 100 Unit/Ml Inj 50 UNITS SC DAILY for 30 Days, #15 PEN 2 Refills Magnesium Oxide (Magnesium-Oxide) 400 Mg Tab 400 MG PO BID for 7 Days, #14 TAB 0 Refills Potassium Chloride (Klor-Con M20) 20 Meq Tabcr 20 MEQ PO QAM for 7 Days, #7 TABS 0 Refills Continued Medications: Allopurinol (Zyloprim) 300 Mg Tab 450 MG PO DAILY, TAB Comugqy-Qfyhsfczvojys-Vfzdilcp (Excedrin Migraine) 1 Tab Tab 1-2 TAB PO DAILY PRN for Migraine Atorvastatin (Lipitor) 10 Mg Tab 10 MG PO DAILY Cholecalciferol (Vitamin D) 1,000 Unit Tab 2000 UNITS PO DAILY Diltiazem HCl Coated Beads (Diltiazem HCl ER) 300 Mg Tab 300 MG PO QPM Doxazosin Mesylate (Cardura) 4 Mg Tab 8 MG PO HS Fenofibrate (Tricor ) 145 Mg Tab 145 MG PO DAILY Fluticasone Propionate (Nasal) (Flonase Allergy Relief) 50 Mcg/Act Spr 2 SPRAY NA DAILY Furosemide (Lasix) 20 Mg Tab 20 MG PO DAILY Gabapentin (Neurontin) 100 Mg Cap 100 MG PO BID Hydralazine Hcl (Apresoline) 100 Mg Tab 100 MG PO BID Lisinopril (Zestril) 40 Mg Tab 40 MG PO DAILY Sildenafil Citrate (Revatio) 20 Mg Tab 60 MG PO UD NEEDED FOR E.D. Sumatriptan Succinate (Imitrex) 50 Mg Tab 50 MG PO PRN PRN for Migraine, TAB MAY REPEAT EVERY 2 HOURS BUT NOT MORE THAN 4 TABLETS IN 24 HOURS Admission Information HPI (per Admitting provider): Pt is 61y/o M with PMH obesity, HTN, dyslipidemia, gout, GISELE, CKD stage III, chronic MEDEROS's presented to ER from PCP office with c/o elevated blood sugar. No hx prior DM. Pt states past 2 months with intermittent dizziness and ill sensation. Past 3-4 weeks with polydipsia, polyuria. Past 2 weeks reports losing 15 pounds. Seen PCP today and BS >700 and pt reported to ER. Denies recent illness, recent steroid use, new medications. Hx chronic MEDEROS's, denies any MEDEROS currently or increased frequency or intensity. Denies fever/chills, diaphoresis, N/V/D/C, syncope, vision changes, neck pain, CP, SOB, orthopnea, palpitations, cough, sore throat, choking, otalgia, rhinorrhea, abdominal pain, paresthesias, weakness, extremity weakness, extremity edema, rashes, dysuria, hematuria. In ER BP: 202/107 down to 164/102, R: 18, P: 96 down to 76, O2: 94% on RA. initial BS 690. Pt given 2L NSS, 2 doses 10units insulin bolus. BS down to 416. Pt reports feeling better and less dizzy. No leukocytosis, corrected Na: 144, K: 3.9, anion gap: 15, BUN: 37, CR: 1.9 (baseline CR 1.6), beta hydroxybutyric acid: 22.5, U/A: trace ketones, magnesium: 2.3. pending ABG. EKG: NSR rate 84, RBBB. negative troponin Pt with hx dobutamine stress echo 02/2017: negative for inducible ischemia, EF: 50-54% Physical Exam (per Admitting): General Appearance: no apparent distress (pt very talkative), + obese Head: normocephalic, atraumatic Eyes: normal inspection, PERRL, EOMI, sclerae normal ENT: hearing grossly normal, + pertinent finding (no pharynx erythema, +dry mucous membranes) Neck: supple, no JVD, no carotid bruits Respiratory/Chest: chest non-tender, lungs clear, normal breath sounds, no respiratory distress, no accessory muscle use Cardiovascular: regular rate, rhythm, no edema, no murmur, normal peripheral pulses Abdomen/GI: normal bowel sounds, non tender, soft Extremities/Musculoskelatal: normal inspection, normal capillary refill, normal range of motion, non-tender Neurologic/Psych: alert, normal mood/affect, oriented x 3 Skin: normal color, warm/dry, no rash Hospital Course 61 year old male with history of HTN, CKD 3, GISELE, presenting with elevated blood glucose. NEW ONSET DIABETES MELLITUS 2 LIKELY HYPERGLYCEMIC HYPEROSMOLAR SYNDROME new onset diabetic, no source of infection, initial BS 690. Pt given 2L NSS IV and 2 bolus of insulin R 10units in ER with BS down to 416. Beta hydroxybutyric acid: 22.5, trace urine ketones, anion gap:15. K: 3.9. ABG: pH: 7.4, pCO2: 36, pO2: 72, HCO3: 24. ma.3, phosphorus: 4.5. corrected Na: 144 -- likely HHS vs DKA given patient's pH was normal, Bicarbonate normal, only had trace ketone in the urine, patient's age unfortunately, serum Osm was not drawn -- he was placed on Insulin drip -- overnight, Gap closed, BSG <200 transitioned from Insulin drip to Lantus -- Pharmacy Glycemic Contrl and Retail Key Holder consulted -- discharge on Lantus 50 units in HS advised to record BSG in AM and AC, call PCP in f BSG high 200s , adhere to DM diet ff up with PCP in 1 week CKD STAGE III WITH ACUTE RENAL FAILURE baseline Cr: 1.6. --> Cr: 1.97 -- back to baseline after IV NSS HYPERTENSION 202/107 to 158/104 -continue diltiazem, lisinopril, doxazosin, hydralazine DYSLIPIDEMIA - LDL 75 TG 381 -continue Lipitor -continue Tricor - advised low fat, carb diet monitor as outpatient MILD HYPO K AND MG - given PO K and Mg - monitor as outpatient GISELE -CPAP HS as per home settings GOUT -continue allopurinol DISPOSITION d/c home ff up with PCP in 1 week discussed plan of care with patient and his at length they are agreeable and comfortable with plan of care all questions answered Total time spent on discharge = This includes examination of the patient, discharge planning, medication reconciliation, and communication with other providers. Discharge Instructions Discharge Instructions Date of Service May 03, 2017. Admission Reason for Admission: DKA Discharge Discharge Diagnosis / Problem: ELEVATE BLOOD GLUCOSE, NEW ONSET DIABETES MELLITUS Discharge Goals Goal(s): Diagnostic testing, Therapeutic intervention Activity Recommendations Activity Limitations: as noted below (INCREASE ACTIVITY GRADUALLY TOLERATED) Lifting Limitations: until after follow-up appointment Exercise/Sports Limitations: until after follow-up appointment Driving or Machine Use: NO DRIVING UNTIL RE-EVALUATED BY PRIMARY CARE PHYSICIAN . Instructions / Follow-Up Instructions / Follow-Up PLEASE REVIEW YOUR NEW MEDICATION LIST AND FOLLOW INSTRUCTIONS CAREFULLY. CALL PRIMARY CARE PHYSICIAN IMMEDIATELY IF YOUR BLOOD SUGAR IS ABOVE 250; OR IF YOU ARE HAVING RECURRENCE OF SYMPTOMS. ENSURE ADEQUATE DAILY FLUID INTAKE. FOLLOW UP WITH DR. MCCOLLUM ON Saturday05/08/17 AT 11:05 AM. Current Hospital Diet Patient's current hospital diet: Diabetes Type 2 Diet, AHA Diet (Heart Healthy) Discharge Diet Recommended Diet: AHA Diet (Heart Healthy), Diabetes Type 2 Diet Pending Studies Studies pending at discharge: no Laboratory Results Hemoglobin A1c Test 05/01/17 14:10 Range/Units Estimated Average Glucose 223 mg/dl Hemoglobin A1c 9.4 H 4.5-5.6 % Lipid Panel Test 05/03/17 05:20 Range/Units Triglycerides Level 381 H 0-150 mg/dl Cholesterol Level 188 0-200 mg/dl HDL Cholesterol 37 mg/dl Cholesterol/HDL Ratio 5.1 LDL Cholesterol, Calculated 75 mg/dl Medical Emergencies . Who to Call and When: Medical Emergencies: If at any time you feel your situation is an emergency, please call 911 immediately. . Non-Emergent Contact Non-Emergency issues call your: Primary Care Provider Call Non-Emergent contact if: you have a fever, you have any medication questions . . "Provider Documentation" section prepared by Julian Charles. . VTE Core Measure Inpt VTE Proph given/why not?: Unfractionated heparin SQ
[2017-05-03 15:30] VITALS: BP 157/98; PULSE 72; TEMP 36.9; O2SAT 97
== END 2017-05-03 15:52 | disposition home or self-care (01) | DRG 637 ==
LOC: C.EDB 13:56 → C.2E 17:31 → ENRESERV 17:40
PROVIDERS: ADMIT Hospitalist; ATTEND Internal Medicine
DX: E11.10 Type 2 diabetes mellitus with ketoacidosis without coma (principal); E11.00 Type 2 diabetes mellitus with hyperosmolarity without nonketotic hyperglycemic-hyperosmolar coma (NKHHC); N17.9 Acute kidney failure, unspecified; E87.6 Hypokalemia; E83.42 Hypomagnesemia; I12.9 Hypertensive chronic kidney disease with stage 1 through stage 4 chronic kidney disease, or unspecified chronic kidney disease; N18.3 Chronic kidney disease, stage 3 (moderate); E78.5 Hyperlipidemia, unspecified; G47.33 Obstructive sleep apnea (adult) (pediatric); M10.9 Gout, unspecified; R51 Headache; E66.9 Obesity, unspecified; Z68.38 Body mass index [BMI] 38.0-38.9, adult; Z79.899 Other long term (current) drug therapy; Z82.49 Family history of ischemic heart disease and other diseases of the circulatory system; Z82.3 Family history of stroke; Z80.8 Family history of malignant neoplasm of other organs or systems

== ENCOUNTER 2020-01-06 12:05 | Inpatient (IN) ==
--- NOTE | 2020-01-06 12:42 | Emergency Department Note ---
Impression & Plan TRINA (acute kidney injury), Weakness, Elevated BUN ED Provider Note NAME: TERRENCE LAMAS AGE: 64 SEX: M : 1955 ARRIVES VIA: Walk-In INFORMANT: Patient ED PROVIDER(S): Chas Fair DO CHIEF COMPLAINT: Abnormal labs HPI: Patient is a 64-year-old male who presents the ER for chronic kidney disease associated with worsening kidney function and potassium levels. Patient follow-up with Dr. Haney from Nephrology this past Saturday and had his creatinine and potassium rechecked as they have been trending up. He had blood work which was resulted today. Showed a potassium of 5.9 and a creatinine of 5.6. GFR is 10. Bicarb 17. He notes he has just been feeling progressively weak and rundown over the past month. Denies any headache, change in vision, chest pain, shortness of breath, nausea vomiting or diarrhea. No dysuria urgency or frequency. ROS: See above HPI for pertinent positives & negatives. A total of 10 systems reviewed and were otherwise negative. PAST MEDICAL HISTORY:See Below PAST SURGICAL HISTORY:See Below FAMILY HISTORY:See Below SOCIAL HISTORY:See Below HOME MEDICATIONS:See Below ALLERGIES:See Below VITALS:See Below PHYSICAL EXAMINATION: GENERAL: Sitting up in bed, alert, obese, well appearing, well nourished, no distress, non-toxic EYE EXAM: normal conjunctiva. OROPHARYNX: no exudate, no erythema, lips, buccal mucosa, and tongue normal and mucous membranes are moist NECK: supple, no nuchal rigidity, no adenopathy, non-tender LUNGS: Clear to auscultation. Normal chest wall mechanics HEART: no murmurs, S1 normal and S2 normal ABDOMEN: abdomen soft, non-tender, normo-active bowel sounds, no masses, no rebound or guarding. BACK: Back is symmetrical on inspection and there is no deformity, no midline tenderness, no CVA tenderness. SKIN: no rashes and no bruising UPPER EXTREMITIES: upper extremities are grossly normal. LOWER EXTREMITIES: No pitting edema. NEURO EXAM: Normal sensorium, cranial nerves II-XII grossly intact, normal speech, no gross weakness of arms, no gross weakness of legs. MEDICAL DECISION MAKING: Patient is a 64-year-old gentleman with a past medical history of CKD followed with nephrology who was referred in for worsening renal function and elevated p otassium level. IV was established blood work was obtained. Lab work showed a mild leukocytosis 11,000. No significant anemia. BMP with a CO2 slightly low at 19. Creatinine was elevated at 3.2 off of baseline of 1.6. Bilirubin LFTs and TSH was unremarkable. UA was negative. Discussed with Dr. Martinez from nephrology who recommended small bolus IV fluids and admission to hospitalist. Discussed with hospitalist for admission. Patient was updated bedside. Triage Nursing notes reviewed. Prior medical records reviewed Vital Signs: reviewed and remarkable for no significant abnormalities Differential diagnosis: Infection, dehydration, metabolic abnormality, hypo/hyperglycemia, electrolyte disturbance, anemia, hypoxia, cardiac sources, intracerebral event, toxicologic, neurologic, as well as other pathologies. ER treatment provided: See below Diagnostics interpreted by me: ECG: Sinus rhythm rate of 94 Right bundle branch block Normal axis DWI in the septal leads No PVCs Cardiac Monitoring: An order was placed for continuous cardiac monitoring. The monitor shows a rate of 98 with sinus rhythm. Laboratory studies: As stated above and show below. Imaging studies: Portable AP upright 1 view of the chest shows no focal infiltrate. Consultation(s): Discussed with Dr. Martinez from nephrology recommended admission and small bolus of IV fluids and holding Lasix Discussed with the hospitalist for admission. ED COURSE: Procedures: none Critical Care: None Past Med/Surg History Medical History (Updated 01/06/20 @ 19:14 by Chas Fair DO) BPH (benign prostatic hyperplasia) CKD (chronic kidney disease) stage 4, GFR 15-29 ml/min Gout HLD (hyperlipidemia) (Chronic) HTN (hypertension) (Chronic) GISELE (obstructive sleep apnea) (Chronic) Surgical History (Updated 01/06/20 @ 15:10 by Cherrie Waddell PA-C) History of carpal tunnel release of both wrists History of hernia repair History of nasal septoplasty History of spinal surgery Family History Father Skin cancer Mother Hypertension Social History (Updated 01/06/20 @ 15:12 by Cherrie Waddell PA-C) Smoking Status: Former smoker Second Hand Exposure: No; Do You Dip or Chew Tobacco: No; Tobacco Cessation Education Requested by Patient: No Hx Alcohol Use: No Hx Substance Use: No Preferred Language: Vietnamese Communication Ability: Effective Surveyor'S Assistant Required: No Beliefs That Will Affect Care: None marital status: Current Living Situation: Spouse Other Information That Helps Us Care for You: No Feels Safe at Home: Yes Safety Concerns: Feels Safe At This Time Allergies Allergies Allergy/AdvReac Type Severity Reaction Status Date / Time propranolol AdvReac Unknown nausea Verified 01/06/20 13:07 (per [facility] note) Home Meds Home Medications Medication Instructions Recorded Confirmed allopurinol 300 mg PO DAILY 01/06/20 01/06/20 atorvastatin 10 mg PO DAILY 01/06/20 01/06/20 cholecalciferol (vitamin D3) 2,000 unit PO DAILY 01/06/20 01/06/20 [Vitamin D3] diltiazem HCl 300 mg PO QPM 01/06/20 01/06/20 doxazosin 8 mg PO HS 01/06/20 01/06/20 fluticasone propionate 2 spray INTRANASAL DAILY 01/06/20 01/06/20 furosemide 40 mg PO BID 01/06/20 01/06/20 gabapentin 100 mg PO BID 01/06/20 01/06/20 hydralazine 50 mg PO TID 01/06/20 01/06/20 Results & Data (ED) Vital Signs Vital Signs - 24 hr 01/06/20 12:13 01/06/20 12:51 01/06/20 14:09 Temperature 36.8 C Temperature Source Oral Pulse Rate 99 H 73 Pulse Rate from SpO2 Sensor 74 Pulse Rhythm Regular Pulse Strength Normal Respiratory Rate 20 13 Respiratory Effort / Characteristics Non-Labored Respiratory Depth Normal Respiratory Pattern Regular Blood Pressure 128/76 107/58 L Blood Pressure Mean 93 75 Blood Pressure Position Sitting Pulse Oximetry 96 96 Oxygen Delivery Method Room Air Room Air Room Air Sepsis Recent Fever Within 48 Hours No Sepsis New/Unexplained Change in Mental Status N/A Sepsis Action Taken by Nursing No Action Required Laboratory Data Result diagrams: 01/06/20 13:00 01/06/20 13:00 Lab Results 01/06/20 01/06/20 Range/Units 13:00 13:00 WBC 11.57 H (4.8-10.8) K/uL RBC 4.32 L (4.7-6.1) M/uL Hgb 13.0 L (14.0-18.0) g/dL Hct 38.3 L (42-52) % MCV 88.7 (80-100) fL MCH 30.1 (25-34) pg MCHC 33.9 (32-36) g/dL RDW Std Deviation 48.8 H (36.4-46.3) fL RDW Coeff of Roderick 15.0 H (11.5-14.5) % Plt Count 208 (130-400) K/uL MPV 10.0 (7.4-10.4) fL Immature Gran % (Auto) 0.9 % Neut % (Auto) 84.3 % Lymph % (Auto) 6.7 % Gallia % (Auto) 6.8 % Eos % (Auto) 1.1 % Baso % (Auto) 0.2 % Neut # (Auto) 9.75 H (1.4-6.5) K/uL Lymph # (Auto) 0.78 L (1.2-3.4) K/uL Gallia # (Auto) 0.79 H (0.11-0.59) K/uL Eos # (Auto) 0.13 (0-0.5) K/uL Baso # (Auto) 0.02 (0-0.2) K/uL Immature Gran # (Auto) 0.10 H (0.00-0.02) K/uL Sodium 140 (136-145) mmol/L Potassium 4.9 (3.5-5.1) mmol/L Chloride 112 H (98-107) mmol/L Carbon Dioxide 19 L (21-32) mmol/L Anion Gap 9.0 (3-11) BUN 88 H (7-18) mg/dl Creatinine 3.20 H (0.6-1.4) mg/dl Est Cr Clr Drug Dosing 32.0 ml/min Est GFR ( Amer) 22.7 Est GFR (Non-Af Amer) 19.5 BUN/Creatinine Ratio 27.5 H (10-20) Glucose 189 H (70-99) mg/dl Calcium 9.2 (8.5-10.1) mg/dl Total Bilirubin 0.4 (0.2-1) mg/dl AST 8 L (15-37) U/L ALT 32 (12-78) U/L Alkaline Phosphatase 65 (45-117) U/L Total Protein 7.8 (6.4-8.2) gm/dl Albumin 3.5 (3.4-5.0) gm/dl Globulin 4.3 H (2.5-4.0) gm/dl Albumin/Globulin Ratio 0.8 L (0.9-2) TSH 1.940 (0.300-4.500) uIu/ml Administered Medications Sodium Bicarbonate 75 meq/ (Sodium Chloride) 1,075 mls @ 80 mls/hr IV .[id number] STACIA Stop: 01/07/20 19:52 Last Admin: 01/06/20 17:06 Dose: 80 mls/hr Documented by: [id number] Insulin Aspart (Novolog Flexpen) 0 units SC ACHS STACIA Stop: 02/05/20 16:29 Last Admin: 01/06/20 17:39 Dose: 3 units Documented by: [id number] Cosigned by: [id number] Discharge Plan Visit Data *Final* Discharge Date/Time: 01/06/20 15:44 Chief Complaint: Abnormal Labs/Diagnostic Testing Stated Complaint: SENT BY DR Piedad [facility] ED Provider: Chas Fair Discharge Problem: TRINA (acute kidney injury), Weakness, Elevated BUN Patient Disposition: Admitted As Inpatient Discharge Instructions Interventions: ED Discharge Assessment Last Done: 01/06/20 15:44
[2020-01-06 13:11] LABS: Basophils # (auto) 0.02 K/uL (0-0.2); Basophils % (auto) 0.2 %; Eosinophils # (auto) 0.13 K/uL (0-0.5); Eosinophils % (auto) 1.1 %; Hematocrit (blood only) 38.3 % (42-52); Immature Granulocytes % (auto) 0.9 %; Lymphocytes # (auto) 0.78 K/uL (1.2-3.4); Lymphocytes % (auto) 6.7 %; Mean Corpuscular Hemoglobin 30.1 pg (25-34); Mean Corpuscular Hgb Conc 33.9 g/dL (32-36); Mean Corpuscular Volume 88.7 fL (80-100); Monocytes # (auto) 0.79 K/uL (0.11-0.59); Monocytes % (auto) 6.8 %; Neutrophils # (auto) 9.75 K/uL (1.4-6.5); Neutrophils % (auto) 84.3 %; Platelet Count 208 K/uL (130-400); RDW Standard Deviation 48.8 fL (36.4-46.3); Red Blood Count 4.32 M/uL (4.7-6.1); White Blood Count 11.57 K/uL (4.8-10.8)
[2020-01-06 13:30] LABS: Albumin Level 3.5 gm/dl (3.4-5.0); BUN Creatinine Ratio 27.5 (10-20); Calcium 9.2 mg/dl (8.5-10.1); Est GFR (African American) 22.7; Est GFR (Non-African American) 19.5; Potassium 4.9 mmol/L (3.5-5.1)
--- NOTE | 2020-01-06 13:36 | XRay Report ---
XR chest 1V portable HISTORY: 64 years-old Male weakness acute hyperkalemia with weakness COMPARISON: Chest radiograph 05/01/2017 TECHNIQUE: Portable AP view of the chest FINDINGS: Cardiac silhouette is mildly enlarged. There is no pneumothorax, pleural effusion, airspace consolida tion or overt pulmonary edema. Bones of the chest appear grossly intact. IMPRESSION: No acute process. ACT 112: Negative or not required by law. The above report was generated using voice recognition software. It may contain grammatical, syntax o r spelling errors. Electronically signed by: Julio César Garduno M.D. 01/06/2020 1:35 PM
[2020-01-06 13:41] LABS: Albumin Globulin Ratio 0.8 (0.9-2); Bilirubin,Total 0.4 mg/dl (0.2-1); Globulin 4.3 gm/dl (2.5-4.0); Thyroid Stimulating Hormone 1.94 uIu/ml (0.300-4.500); Total Protein 7.8 gm/dl (6.4-8.2)
--- NOTE | 2020-01-06 14:05 | Electrocardiogram Report ---
Test Reason : Blood Pressure : / mmHG Vent. Rate : 094 BPM Atrial Rate : 094 BPM P-R Int : 150 ms QRS Dur : 136 ms QT Int : 346 ms P-R-T Axes : 040 049 017 degrees QTc Int : 432 ms Normal sinus rhythm Right bundle branch block Cannot rule out Inferior infarct (cited on or before 14-JAN-1999) Abnormal ECG When compared with ECG of 03-MAY-2017 06:35, Vent. rate has increased BY 34 BPM Confirmed by Nehemiah Sher ([id number]) on 01/06/2020 2:05:10 PM Referred By: Confirmed By:Nehemiah Sher
--- NOTE | 2020-01-06 15:21 | History & Physical Report ---
Date of Service January 06, 2020 Assessment & Plan (1) Acute worsening of stage 4 chronic kidney disease: This is a 64-year-old male who has significant PMH of insulin-dependent T2DM, CKD stage IV, HTN, HLD, GISELE, BPH, chronic low back pain who presents to ED at the referral of nephrology secondary to worsening CKD. Pt had outpt labs done 12/20 which revealed BUN and creatinine 76 and 2.9 and potassium 5.9 Outpatient labs repeated on 12/31 revealed worsening renal function with BUN and creatinine of 115 and 5.6 and potassium at 5.9. At that time patient was urged to seek ED by nephrology but refused. His lisinopril was placed on hold. He was seen and evaluated by PCP today who again recommended ER evaluation due to worsening renal function. Today renal function has improved to BUN 18 creatinine 3.20 and normalized potassium. He does state that he has cut down his Excedrin use from 6 to 1 tablet, and has been holding lisinopril. Admit to telemetry Discussed case with nephrology Dr. Beltran - pt is refusing to see waiter/waitress club currently on service; therefore no formal consult will be placed. Okay to reach Dr. Beltran to assist in management Recommendation are to hold lasix, place on gentle hydration 80cc/hr 1/2NS + 75meq bicarb, continue to hold lisinopril repeat labs in a.m. continue to avoid nephrotoxic agents if able prior to discharge recommendation is to resume lasix and lisinopril (lasix is uses to mitigate hyperkalemia by lisinopril) Use lasix PRN while in house for volume management (2) T2DM (type 2 diabetes mellitus): last a1c 6.9 03/2019 repeat a1c in a.m. Lantus/novolog per protocol (3) HTN (hypertension): blood pressure stable lisinopril recently held as outpt [address] Beltran due to worsened renal fxn and hyperkalemia hold lasix and continue to hold lisinopril, continue hydralazine and diltiazem (4) HLD (hyperlipidemia): continue statin (5) GISELE (obstructive sleep apnea): CPAP at HS (6) Gout: continue allopurinol (7) BPH (benign prostatic hyperplasia): continue doxazosin (8) DVT prophylaxis: SQ heparin Disposition: admit to tele Follow up: PCP Dr. Mcleod upon discharge and Dr. Beltran nephrology Pt was seen and examined in collaboration with Dr. Mckeon, please see addendum History of Present Illness Chief Complaint: Referred by PCP. Primary Care Provider: Kavon Mcleod DO This is a 64-year-old male who has significant PMH of insulin-dependent T2DM, CKD stage IV, HTN, HLD, GISELE, BPH, chronic low back pain who presents to ED at the referral of PCP secondary to worsening CKD. Over the past month he has overall been feeling poorly, extreme fatigue, malaise, change in appetite and taste. He becomes tearful during visit. "I am unable to do anything." Complains of shortness of breath with exertion with minimal activity, dizziness and chills. He denies any significant weight loss, night sweats, fever, sweats, lightheadedness, syncope, chest pain, palpitations, cough, nausea, vomiting, abdominal pain, diarrhea, dysuria, increased urgency or frequency with urination. He is still making urine and this is unchanged. He denies any hematuria, melena or hematochezia. His appetite is overall been reduced and feels he has lost some weight but nothing substantial. Pt had lab work done on 12/20 which showed worsening renal fxn cr 2.9, bun 76 and K of 5.9. Repeat lab work on 12/31 revealed bun 115, Cr 5.6 K 5.9. He was referred to ED on 01/05 by nephrology but pt refused to go. He was seen in clinic today by PCP Dr. Mcleod. His lisinopril has been discontinued 2 days prior to arrival. His lasix was also recommended to be held today in clinic. He does not use NSAIDS and has cut his excedrin use back significant from 6 daily to only 1 at HS. In ED pt actually has improvement in his renal fxn with BUN 88 and Cr 3.20, COZ low at 19, K jessica lized at 4.9. He is hemodynamically stable. Inpt admission recommended in setting of A/C CKD4. Allergies Allergy/AdvReac Type Severity Reaction Status Date / Time propranolol AdvReac Unknown nausea Verified 01/06/20 13:07 (per [facility] note) Home Medications Home Medications Medication Instructions Recorded Confirmed Type allopurinol 300 mg PO DAILY 01/06/20 01/06/20 History atorvastatin 10 mg PO DAILY 01/06/20 01/06/20 History cholecalciferol (vitamin D3) 2,000 unit PO DAILY 01/06/20 01/06/20 History [Vitamin D3] diltiazem HCl 300 mg PO QPM 01/06/20 01/06/20 History doxazosin 8 mg PO HS 01/06/20 01/06/20 History fluticasone propionate 2 spray INTRANASAL DAILY 01/06/20 01/06/20 History furosemide 40 mg PO BID 01/06/20 01/06/20 History gabapentin 100 mg PO BID 01/06/20 01/06/20 History hydralazine 50 mg PO TID 01/06/20 01/06/20 History Past Med/Surg History Medical History (Updated 01/06/20 @ 16:28 by Cherrie Waddell PA-C) BPH (benign prostatic hyperplasia) CKD (chronic kidney disease) stage 4, GFR 15-29 ml/min Gout HLD (hyperlipidemia) (Chronic) HTN (hypertension) (Chronic) GISELE (obstructive sleep apnea) (Chronic) Surgical History (Updated 01/06/20 @ 15:10 by Cherrie Waddell PA-C) History of carpal tunnel release of both wrists History of hernia repair History of nasal septoplasty History of spinal surgery Family History Father Skin cancer Mother Hypertension Social History (Updated 01/06/20 @ 15:12 by Cherrie Waddell PA-C) Smoking Status: Former smoker Second Hand Exposure: No; Do You Dip or Chew Tobacco: No; Tobacco Cessation Education Requested by Patient: No Hx Alcohol Use: No Hx Substance Use: No Preferred Language: Turkish Communication Ability: Effective Paint Stock Clerk Required: No Beliefs That Will Affect Care: None marital status: Current Living Situation: Spouse Other Information That Helps Us Care for You: No Feels Safe at Home: Yes Safety Concerns: Feels Safe At This Time Review of Systems Review of Systems: All systems reviewed & are unremarkable except as noted in HPI & below Physical Exam Physical Exam: Constitutional: WD/WN, morbidly obese, M, pt tearful, vitals as above, NAD, sitting up in bed, conversing easily Head: Normocephalic, Atraumatic Eyes: PERRL, conjunctivae normal, anicteric sclerae ENMT: external ear and nose normal, oropharynx normal Neck: trachea midline, no thyromegaly normal visual inspection Respiratory: normal respiratory effort, lungs clear to auscultation, no wheeze, rales, rhonchi. Normal insp/exp effort, no accessory muscle use Cardiovascular: RRR, no murmur, trace pretibial edema Vessels: no JVD or carotid bruit Chest: normal inspection of chest Abdomen:protuberant abdomen, normal bowel sounds, soft, nontender, no hepatosplenomegaly Musculoskeletal: no cyanosis or clubbing, extremities motor strength 5/5 Skin: no rashes, warm and dry normal turgor Neurologic: PERRL, EOMI, accommodation nl, no face palsy, no dysarthria CN's II-XI intact bilaterally and moves all extremities Psychiatric: A+Ox3, euthymic affect Lymphatic: no cervical or axillary lymphadenopathy : deferred Results & Data Results & Data ([facility]) Vital Signs (Past 12 Hours) Vital Signs Temp Pulse Resp BP Pulse Ox 01/06/20 12:13 36.8 C 99 H 20 128/76 96 Laboratory Results Short CBC 01/06/20 01/06/20 Range/Units 13:00 13:00 WBC 11.57 H (4.8-10.8) K/uL Hgb 13.0 L (14.0-18.0) g/dL Hct 38.3 L (42-52) % Plt Count 208 (130-400) K/uL Creatinine 3.20 H (0.6-1.4) mg/dl BMP 01/06/20 13:00 Sodium 140 Potassium 4.9 Chloride 112 H Carbon Dioxide 19 L BUN 88 H Creatinine 3.20 H Glucose 189 H Calcium 9.2 Liver Function 01/06/20 Range/Units 13:00 Total Bilirubin 0.4 (0.2-1) mg/dl AST 8 L (15-37) U/L ALT 32 (12-78) U/L Alkaline Phosphatase 65 (45-117) U/L Albumin 3.5 (3.4-5.0) gm/dl Diagnostic Findings CXR: IMPRESSION: No acute process. ECG Rate (beats per minute): 94 Rhythm: normal sinus Findings: + RBBB Code Status & VTE Plan Code Status Full Code VTE Prophylaxis Plan VTE Prophylaxis will be ordered: Yes Supervising Physician Co-Signing Physician Notes Attending addendum The patient was seen and examined in medical telemetry unit He was admitted with acute on chronic renal failure Denies any symptoms since admission On examining Hemodynamically stable No apparent distress at rest Chest-clear to auscultate bilaterally Heart-S1-S2 regular Abdomen-distended, benign, nontender, bowel sounds present Extremities-trace edema bilaterally Admission labs and imaging studies reviewed Has TRINA on CKD Discussed with waiter/waitress club Agree with assessment and plan as outlined above by ENDY Wilcox Dr
[2020-01-06 16:03] LABS: Appearance Urine Clear (Clear); Bilirubin Urine Negative (Negative); Blood Urine Negative (Negative); Color Urine Yellow; Glucose Urine UA Negative (Negative); Ketones Urine Negative (Negative); Leukocyte Esterase Urine Negative (Negative); Nitrite Urine Negative (Negative); Protein Urine Negative (Negative); Specific Gravity Urine 1.018 (1.000-1.030); Urobilinogen Urine Negative (Negative)
[2020-01-06] MEDS ORDERED: GLUCOSE 40% GEL 15 GM TUBE PO PRN (16:14)
[2020-01-06] MEDS ORDERED: GLUCAGON FOR INJ 1 MG VIAL SQ PRN (16:14)
[2020-01-06] MEDS ORDERED: DEXTROSE 50% 50 ML SYRINGE IV PRN (16:14)
[2020-01-06] MEDS ORDERED: GLUCOSE 10 TABS/TUBE PO PRN (16:14)
[2020-01-06] MEDS ORDERED: POLYETHYLENE (MIRALAX) 17 GM PACK PO PRN (16:14)
[2020-01-06] MEDS ORDERED: CARBOHYDRATES FOR HYPOGLYCEMIA PO PRN (16:14)
[2020-01-06] MEDS ORDERED: ONDANSETRON INJ 2 MG/ML 2 ML VIAL IV PRN (16:14)
[2020-01-06] MEDS: SODIUM BICARBONATE 8.4% 75 MEQ in SODIUM CHLORIDE 0.45 % 1,000 ML IV SCH (17:06)
[2020-01-06] MEDS: INSULIN ASPART 100 UNITS/ML 3 ML PEN SC SCH ×2 (17:39→20:19)
[2020-01-06] MEDS: DOXAZosin MESYLATE 4 MG TAB PO SCH (20:08)
[2020-01-06] MEDS: HydrALAZINE TAB 50 MG TAB PO SCH (20:08)
[2020-01-06] MEDS: dilTIAZem HCL 300 MG CAPCR PO SCH (20:08)
[2020-01-06] MEDS: ACETAMINOPHEN 325 MG TAB PO PRN (20:18)
[2020-01-06] MEDS: INSULIN GLARGINE SOLOSTAR 100 UNITS/ML 3 ML PEN SC SCH (20:19)
[2020-01-06] MEDS: HEPARIN SOD 5,000 UNIT/0.5 ML VIAL SQ SCH (20:21)
[2020-01-07] MEDS: HEPARIN SOD 5,000 UNIT/0.5 ML VIAL SQ SCH ×3 (05:53→20:39)
[2020-01-07] MEDS: SODIUM BICARBONATE 8.4% 75 MEQ in SODIUM CHLORIDE 0.45 % 1,000 ML IV SCH (06:33)
[2020-01-07 07:59] LABS: Basophils # (auto) 0.01 K/uL (0-0.2); Basophils % (auto) 0.1 %; Eosinophils # (auto) 0.15 K/uL (0-0.5); Eosinophils % (auto) 1.5 %; Hematocrit (blood only) 35.5 % (42-52); Hemoglobin 12.1 g/dL (14.0-18.0); Lymphocytes # (auto) 0.87 K/uL (1.2-3.4); Lymphocytes % (auto) 8.8 %; Mean Corpuscular Hgb Conc 34.1 g/dL (32-36); Mean Corpuscular Volume 88.1 fL (80-100); Mean Platelet Volume 9.9 fL (7.4-10.4); Monocytes % (auto) 7.1 %; Neutrophils # (auto) 8.01 K/uL (1.4-6.5); Neutrophils % (auto) 81.5 %; Platelet Count 190 K/uL (130-400); RDW Coefficient of Variation 14.8 % (11.5-14.5); Red Blood Count 4.03 M/uL (4.7-6.1); White Blood Count 9.84 K/uL (4.8-10.8)
[2020-01-07] MEDS: CHOLECALCIFEROL 1,000 UNITS 25 MCG TAB PO SCH (08:02)
[2020-01-07] MEDS: ATORVASTATIN 10 MG TAB PO SCH (08:03)
[2020-01-07] MEDS: HydrALAZINE TAB 50 MG TAB PO SCH ×3 (08:03→20:34)
[2020-01-07] MEDS: FLUTICASONE PROPIONATE NA SPR 16 GM BTL SCH (08:03)
[2020-01-07] MEDS: INSULIN GLARGINE SOLOSTAR 100 UNITS/ML 3 ML PEN SC SCH ×2 (08:05→20:37)
[2020-01-07] MEDS: INSULIN ASPART 100 UNITS/ML 3 ML PEN SC SCH ×4 (08:09→20:36)
[2020-01-07] MEDS: allopurinoL 300 MG TAB PO SCH (08:15)
[2020-01-07 08:35] LABS: Albumin Level 3.1 gm/dl (3.4-5.0); Calcium 8.9 mg/dl (8.5-10.1); Est GFR (African American) 27.9; Est GFR (Non-African American) 24.1; Magnesium 2.1 mg/dl (1.8-2.4); Potassium 4.5 mmol/L (3.5-5.1)
[2020-01-07 08:37] LABS: Albumin Globulin Ratio 0.9 (0.9-2); Bilirubin,Total 0.4 mg/dl (0.2-1); Globulin 3.6 gm/dl (2.5-4.0); Phosphorus 3.3 mg/dl (2.5-4.9); Total Protein 6.7 gm/dl (6.4-8.2)
[2020-01-07 10:06] LABS: Estimated Average Glucose 186 mg/dl; Hemoglobin A1C 8.1 % (4.5-5.6)
[2020-01-07] MEDS: ACETAMINOPHEN 325 MG TAB PO PRN (12:05)
--- NOTE | 2020-01-07 16:36 | Hospitalist Progress Note ---
Date of Service January 07, 2020 Assessment & Plan (1) Acute worsening of stage 4 chronic kidney disease: This is a 64-year-old male who has significant PMH of insulin-dependent T2DM, CKD stage IV, HTN, HLD, GISELE, BPH, chronic low back pain who presents to ED at the referral of nephrology secondary to worsening CKD. Admitted with TRINA on CKD with creatinine went up to more than 3 on admission Discussed with field liability generalist Has been receiving intravenous fluid as advised Clinically better today Creatinine level has gone down to 2.69 We will continue current intravenous fluid and hold off any Lasix and/or furosemide Advised to drink more fluid Monitor PRP Generalized weakness We will get PT and OT evaluation If reasonably well and if the creatinine has been improving we will discharge home tomorrow (2) T2DM (type 2 diabetes mellitus): last a1c 6.9 03/2019 repeat a1c in a.m. Lantus/novolog per protocol (3) HTN (hypertension): blood pressure stable lisinopril recently held as outpt [address] Beltran due to worsened renal fxn and hyperkalemia hold lasix and continue to hold lisinopril, continue hydralazine and diltiazem If the blood pressure remains stable will not restart lisinopril for now (4) HLD (hyperlipidemia): continue statin (5) GISELE (obstructive sleep apnea): CPAP at HS (6) Gout: continue allopurinol (7) BPH (benign prostatic hyperplasia): continue doxazosin (8) DVT prophylaxis: SQ heparin Disposition: admit to tele Follow up: PCP Dr. Mcleod upon discharge and Dr. Beltran nephrology Admission and Anticipated Discharge Date Admission Date: January 06, 2020 Subjective The patient was seen and examined in medical telemetry unit He has been feeling much better and denies any significant symptoms He has not been out of bed yet and will ask for PT and OT evaluation Review of Systems Review of Systems: All systems reviewed and are unremarkable except as noted below Respiratory: + dyspnea on exertion Physical Exam Physical Exam: Lying in bed comfortably Constitutional: well developed, well nourished and + obese; no acute distress and not ill appearing Eyes: PERRL, conjunctivae normal, anicteric sclerae ENMT: external ear and nose normal, oropharynx normal Neck: trachea midline, no thyromegaly Respiratory: normal respiratory effort; no respiratory distress Auscultation: lungs clear to auscultation bilaterally Cardiovascular: Rate/Rhythm: regular rate and regular rhythm Heart Sounds: no murmur Gastrointestinal (Abdomen): Inspection/Auscultation: abdomen normal to inspection; abdomen not distended Percussion/Palpation: abdomen soft; abdomen nontender Musculoskeletal: No acute arthritis involving any joints Neurologic: moves all extremities; no focal motor deficits Lymphatic: no cervical or axillary lymphadenopathy Results & Data Results & Data [facility]) Vital Signs (Past 12 Hours) Vital Signs Temp Pulse Pulse Resp BP Pulse Ox 01/07/20 15:09 36.8 C 77 18 133/80 96 01/07/20 11:18 36.7 C 72 18 123/76 96 01/07/20 10:00 78 01/07/20 07:28 36.5 C 67 18 124/78 96 01/07/20 04:56 70 Laboratory Results Short CBC 01/07/20 Range/Units 07:38 WBC 9.84 (4.8-10.8) K/uL Hgb 12.1 L (14.0-18.0) g/dL Hct 35.5 L (42-52) % Plt Count 190 (130-400) K/uL BMP 01/07/20 07:38 Sodium 138 Potassium 4.5 Chloride 109 H Carbon Dioxide 21 BUN 78 H Creatinine 2.69 H D Glucose 146 H Calcium 8.9 Liver Function 01/07/20 Range/Units 07:38 Total Bilirubin 0.4 (0.2-1) mg/dl AST 6 L (15-37) U/L ALT 28 (12-78) U/L Alkaline Phosphatase 57 (45-117) U/L Albumin 3.1 L (3.4-5.0) gm/dl Medications Administered Current Inpatient Medications Acetaminophen (Tylenol) 650 mg PO Q4H PRN PRN Reason: Pain or Fever Stop: 02/05/20 16:13 Last Admin: 01/07/20 12:05 Dose: 650 mg Documented by: Allopurinol (Zyloprim) 300 mg PO DAILY [facility] Stop: 02/06/20 08:59 Last Admin: 01/07/20 08:15 Dose: 300 mg Documented by: Atorvastatin Calcium (Lipitor) 10 mg PO DAILY [facility] Stop: 02/06/20 08:59 Last Admin: 01/07/20 08:03 Dose: 10 mg Documented by: Dextrose (Dextrose 50%) 25 - 50 ml IV UD PRN; Protocol PRN Reason: Hypoglycemia Protocol Stop: 02/05/20 16:13 Diltiazem HCl (Cardizem Cd) 300 mg PO QPM [facility] Stop: 02/05/20 20:59 Last Admin: 01/06/20 20:08 Dose: 300 mg Documented by: Doxazosin Mesylate (Cardura) 8 mg PO HS [facility] Stop: 02/05/20 20:59 Last Admin: 01/06/20 20:08 Dose: 8 mg Documented by: Fluticasone Propionate (Flonase) 2 sprays NA DAILY [facility] Stop: 02/06/20 08:59 Last Admin: 01/07/20 08:03 Dose: 2 sprays Documented by: Glucagon (Glucagen) 1 mg SQ UD PRN; Protocol PRN Reason: Hypoglycemia Protocol Stop: 02/05/20 16:13 Glucose (Dex4 Glucose) 4 - 8 tabs PO UD PRN; Protocol PRN Reason: Hypoglycemia Protocol Stop: 02/05/20 16:13 Glucose (Glucose 40%) 15 - 30 gm PO UD PRN; Protocol PRN Reason: Hypoglycemia Protocol Stop: 02/05/20 16:13 Heparin Sodium (Porcine) (Heparin Sodium (Porcine)) 5,000 units SQ Q8 [facility] Stop: 02/05/20 21:59 Last Admin: 01/07/20 14:04 Dose: 5,000 units Documented by: Hydralazine HCl (Apresoline) 50 mg PO TID [facility] Stop: 02/05/20 20:59 Last Admin: 01/07/20 14:04 Dose: 50 mg Documented by: Sodium Bicarbonate 75 meq/ (Sodium Chloride) 1,075 mls @ 80 mls/hr IV .[id number] [facility] Stop: 01/07/20 19:52 Last Admin: 01/07/20 06:33 Dose: 80 mls/hr Documented by: Insulin Aspart (Novolog Flexpen) 0 units SC ACHS [facility] Stop: 02/05/20 16:29 Last Admin: 01/07/20 12:16 Dose: 9 units Documented by: Insulin Glargine (Lantus Solostar Pen) 0 - 15 units SC BID [facility]; Protocol Stop: 02/05/20 20:59 Last Admin: 01/07/20 08:05 Dose: 8 units Documented by: Miscellaneous (Carbohydrates For Hypoglycemia) 15 - 30 gm PO UD PRN PRN Reason: Hypoglycemia Protocol Stop: 02/05/20 16:13 Ondansetron HCl (Zofran) 4 mg IV Q6H PRN PRN Reason: Nausea Stop: 02/05/20 16:13 Polyethylene Glycol (Miralax Powder Packet) 17 gm PO DAILY PRN PRN Reason: Constipation Stop: 02/05/20 16:13 Vitamin D (Vitamin D3) 2,000 units PO DAILY [facility] Stop: 02/06/20 08:59 Last Admin: 01/07/20 08:02 Dose: 2,000 units Documented by:
[2020-01-07] MEDS: GABAPENTIN 100 MG CAP PO SCH (20:33)
[2020-01-07] MEDS: DOXAZosin MESYLATE 4 MG TAB PO SCH (20:34)
[2020-01-07] MEDS: dilTIAZem HCL 300 MG CAPCR PO SCH (20:34)
[2020-01-08] MEDS: HEPARIN SOD 5,000 UNIT/0.5 ML VIAL SQ SCH ×2 (05:56→15:03)
[2020-01-08] MEDS: FLUTICASONE PROPIONATE NA SPR 16 GM BTL SCH (07:51)
[2020-01-08] MEDS: HydrALAZINE TAB 50 MG TAB PO SCH ×2 (07:51→15:02)
[2020-01-08] MEDS: allopurinoL 300 MG TAB PO SCH (07:52)
[2020-01-08] MEDS: ATORVASTATIN 10 MG TAB PO SCH (07:52)
[2020-01-08] MEDS: GABAPENTIN 100 MG CAP PO SCH (07:52)
[2020-01-08] MEDS: CHOLECALCIFEROL 1,000 UNITS 25 MCG TAB PO SCH (07:52)
[2020-01-08 08:40] LABS: BUN Creatinine Ratio 23.7 (10-20); Calcium 8.8 mg/dl (8.5-10.1); Est GFR (African American) 30.7; Est GFR (Non-African American) 26.5; Magnesium 2.1 mg/dl (1.8-2.4); Potassium 4.3 mmol/L (3.5-5.1)
[2020-01-08] MEDS: INSULIN ASPART 100 UNITS/ML 3 ML PEN SC SCH ×2 (08:46→12:30)
[2020-01-08] MEDS: INSULIN GLARGINE SOLOSTAR 100 UNITS/ML 3 ML PEN SC SCH (08:47)
--- NOTE | 2020-01-08 11:49 | Hospitalist Progress Note ---
Date of Service January 08, 2020 Assessment & Plan (1) Acute worsening of stage 4 chronic kidney disease: This is a 64-year-old male who has significant PMH of insulin-dependent T2DM, CKD stage IV, HTN, HLD, GISELE, BPH, chronic low back pain who presents to ED at the referral of nephrology secondary to worsening CKD. Admitted with TRINA on CKD with creatinine went up to more than 3 on admission Discussed with statue carver Has been receiving intravenous fluid as advised Clinically better today Creatinine level has gone down to 2.69 We will continue current intravenous fluid and hold off any Lasix and/or furosemide Advised to drink more fluid Creatinine is much better today at 2.39 Generalized weakness We will get PT and OT evaluation If reasonably well and if the creatinine has been improving we will discharge home tomorrow Weakness is improved and has been participating in PT and OT Wants to be discharged this afternoon (2) T2DM (type 2 diabetes mellitus): last a1c 6.9 03/2019 repeat a1c in a.m. Lantus/novolog per protocol (3) HTN (hypertension): blood pressure stable lisinopril recently held as outpt [address] Beltran due to worsened renal fxn and hyperkalemia hold lasix and continue to hold lisinopril, continue hydralazine and diltiazem If the blood pressure remains stable will not restart lisinopril for now (4) HLD (hyperlipidemia): continue statin (5) GISELE (obstructive sleep apnea): CPAP at HS (6) Gout: continue allopurinol (7) BPH (benign prostatic hyperplasia): continue doxazosin (8) DVT prophylaxis: SQ heparin Disposition: admit to tele Follow up: PCP Dr. Mcleod upon discharge and Dr. Beltran nephrology Discussed with statue carver and possible discharge this afternoon Admission and Anticipated Discharge Date Admission Date: January 06, 2020 Subjective The patient was seen and examined in medical telemetry unit He has been feeling much better and denies any significant symptoms He has not been out of bed yet and will ask for PT and OT evaluation 01/08/2020 Patient is seen and examined in medical floor He has been feeling a lot better today and has been ambulating in the room and hallway without any symptoms Denies any shortness of breath with exertion Review of Systems Review of Systems: All systems reviewed and are unremarkable except as noted below Respiratory: no dyspnea on exertion Physical Exam Physical Exam: Sitting at the edge of the bed without any symptoms Constitutional: well developed, well nourished and + obese; no acute distress and not ill appearing Eyes: PERRL, conjunctivae normal, anicteric sclerae ENMT: external ear and nose normal, oropharynx normal Neck: trachea midline, no thyromegaly Respiratory: normal respiratory effort; no respiratory distress Auscultation: lungs clear to auscultation bilaterally Cardiovascular: Rate/Rhythm: regular rate and regular rhythm Heart Sounds: no murmur Gastrointestinal (Abdomen): Inspection/Auscultation: abdomen normal to inspection and normal bowel sounds; abdomen not distended Percussion/Palpation: abdomen soft; abdomen nontender Musculoskeletal: No acute arthritis involving any joints Neurologic: moves all extremities; no focal motor deficits Lymphatic: no cervical or axillary lymphadenopathy Results & Data Results & Data ([facility]) Vital Signs (Past 12 Hours) Vital Signs Temp Pulse Pulse Resp BP BP Pulse Ox 01/08/20 07:29 36.7 C 57 L 18 121/79 96 01/08/20 03:48 63 16 92 01/08/20 00:07 36.4 C L 71 17 118/69 96 01/08/20 00:05 62 18 93 Laboratory Results [facility] 01/08/20 07:35 Sodium 140 Potassium 4.3 Chloride 110 H Carbon Dioxide 22 BUN 59 H Creatinine 2.49 H Glucose 134 H Calcium 8.8 Medications Administered Current Inpatient Medications Acetaminophen (Tylenol) 650 mg PO Q4H PRN PRN Reason: Pain or Fever Stop: 02/05/20 16:13 Last Admin: 01/07/20 12:05 Dose: 650 mg Documented by: Allopurinol (Zyloprim) 300 mg PO DAILY [facility] Stop: 02/06/20 08:59 Last Admin: 01/08/20 07:52 Dose: 300 mg Documented by: Atorvastatin Calcium (Lipitor) 10 mg PO DAILY [facility] Stop: 02/06/20 08:59 Last Admin: 01/08/20 07:52 Dose: 10 mg Documented by: Dextrose (Dextrose 50%) 25 - 50 ml IV UD PRN; Protocol PRN Reason: Hypoglycemia Protocol Stop: 02/05/20 16:13 Diltiazem HCl (Cardizem Cd) 300 mg PO QPM [facility] Stop: 02/05/20 20:59 Last Admin: 01/07/20 20:34 Dose: 300 mg Documented by: Doxazosin Mesylate (Cardura) 8 mg PO HS [facility] Stop: 02/05/20 20:59 Last Admin: 01/07/20 20:34 Dose: 8 mg Documented by: Fluticasone Propionate (Flonase) 2 sprays NA DAILY [facility] Stop: 02/06/20 08:59 Last Admin: 01/08/20 07:51 Dose: 2 sprays Documented by: Gabapentin (Neurontin) 100 mg PO BID [facility] Stop: 02/06/20 20:59 Last Admin: 01/08/20 07:52 Dose: 100 mg Documented by: Glucagon (Glucagen) 1 mg SQ UD PRN; Protocol PRN Reason: Hypoglycemia Protocol Stop: 02/05/20 16:13 Glucose (Dex4 Glucose) 4 - 8 tabs PO UD PRN; Protocol PRN Reason: Hypoglycemia Protocol Stop: 02/05/20 16:13 Glucose (Glucose 40%) 15 - 30 gm PO UD PRN; Protocol PRN Reason: Hypoglycemia Protocol Stop: 02/05/20 16:13 Heparin Sodium (Porcine) (Heparin Sodium (Porcine)) 5,000 units SQ Q8 [facility] Stop: 02/05/20 21:59 Last Admin: 01/08/20 05:56 Dose: 5,000 units Documented by: Hydralazine HCl (Apresoline) 50 mg PO TID [facility] Stop: 02/05/20 20:59 Last Admin: 01/08/20 07:51 Dose: 50 mg Documented by: Insulin Aspart (Novolog Flexpen) 0 units SC ACHS [facility] Stop: 02/05/20 16:29 Last Admin: 01/08/20 08:46 Dose: 3 units Documented by: Insulin Glargine (Lantus Solostar Pen) 0 - 15 units SC BID [facility]; Protocol Stop: 02/05/20 20:59 Last Admin: 01/08/20 08:47 Dose: 8 units Documented by: Miscellaneous (Carbohydrates For Hypoglycemia) 15 - 30 gm PO UD PRN PRN Reason: Hypoglycemia Protocol Stop: 02/05/20 16:13 Ondansetron HCl (Zofran) 4 mg IV Q6H PRN PRN Reason: Nausea Stop: 02/05/20 16:13 Polyethylene Glycol (Miralax Powder Packet) 17 gm PO DAILY PRN PRN Reason: Constipation Stop: 02/05/20 16:13 Vitamin D (Vitamin D3) 2,000 units PO DAILY [facility] Stop: 02/06/20 08:59 Last Admin: 01/08/20 07:52 Dose: 2,000 units Documented by:
--- NOTE | 2020-01-09 07:31 | Discharge Summary ---
Date of Service January 09, 2020 Admission HPI Per Admitting Provider This is a 64-year-old male who has significant PMH of insulin-dependent T2DM, CKD stage IV, HTN, HLD, GISELE, BPH, chronic low back pain who presents to ED at the referral of PCP secondary to worsening CKD. Over the past month he has overall been feeling poorly, extreme fatigue, malaise, change in appetite and taste. He becomes tearful during visit. "I am unable to do anything." Complains of shortness of breath with exertion with minimal activity, dizziness and chills. He denies any significant weight loss, night sweats, fever, sweats, lightheadedness, syncope, chest pain, palpitations, cough, nausea, vomiting, abdominal pain, diarrhea, dysuria, increased urgency or frequency with urination. He is still making urine and this is unchanged. He denies any hematuria, melena or hematochezia. His appetite is overall been reduced and feels he has lost some weight but nothing substantial. Pt had lab work done on 12/20 which showed worsening renal fxn cr 2.9, bun 76 and K of 5.9. Repeat lab work on 12/31 revealed bun 115, Cr 5.6 K 5.9. He was referred to ED on 01/05 by nephrology but pt refused to go. He was seen in clinic today by PCP Dr. Mcleod. His lisinopril has been discontinued 2 days prior to arrival. His lasix was also recommended to be held today in clinic. He does not use NSAIDS and has cut his excedrin use back significant from 6 daily to only 1 at HS. In ED pt actually has improvement in his renal fxn with BUN 88 and Cr 3.20, COZ low at 19, K normalized at 4.9. He is hemodynamically stable. Inpt admission recommended in setting of A/C CKD4. Admission Exam Per Admitting Provider Physical Exam: Constitutional: WD/WN, morbidly obese, M, pt tearful, vitals as above, NAD, sitting up in bed, conversing easily Head: Normocephalic, Atraumatic Eyes: PERRL, conjunctivae normal, anicteric sclerae ENMT: external ear and nose normal, oropharynx normal Neck: trachea midline, no thyromegaly normal visual inspection Respiratory: normal respiratory effort, lungs clear to auscultation, no wheeze, rales, rhonchi. Normal insp/exp effort, no accessory muscle use Cardiovascular: RRR, no murmur, trace pretibial edema Vessels: no JVD or carotid bruit Chest: normal inspection of chest Abdomen:protuberant abdomen, normal bowel sounds, soft, nontender, no hepatosplenomegaly Musculoskeletal: no cyanosis or clubbing, extremities motor strength 5/5 Skin: no rashes, warm and dry normal turgor Neurologic: PERRL, EOMI, accommodation nl, no face palsy, no dysarthria CN's II-XI intact bilaterally and moves all extremities Psychiatric: A+Ox3, euthymic affect Lymphatic: no cervical or axillary lymphadenopathy : deferred Principal Diagnosis Acute on chronic kidney disease Discharge Exam Constitutional well developed, well nourished and + obese; no acute distress and not ill appearing Eyes PERRL, conjunctivae normal, anicteric sclerae ENMT external ear and nose normal, oropharynx normal Neck trachea midline, no thyromegaly Respiratory normal respiratory effort; no respiratory distress Auscultation: lungs clear to auscultation bilaterally Cardiovascular Rate/Rhythm: regular rate and regular rhythm Heart Sounds: no murmur Gastrointestinal (Abdomen) Inspection/Auscultation: abdomen normal to inspection and normal bowel sounds; abdomen not distended Percussion/Palpation: abdomen soft; abdomen nontender Neurologic moves all extremities; no focal motor deficits Lymphatic no cervical or axillary lymphadenopathy Discharge Data Allergies Allergy/AdvReac Type Severity Reaction Status Date / Time propranolol AdvReac Unknown nausea Verified 01/06/20 13:07 (per [facility] office note) Consultations 01/06/20 14:37 ED Decision to Admit Stat 01/06/20 16:14 Consult Case Management - Discharge Planning Routine Hospital Course (1) Acute worsening of stage 4 chronic kidney disease: This is a 64-year-old male who has significant PMH of insulin-dependent T2DM, CKD stage IV, HTN, HLD, GISELE, BPH, chronic low back pain who presents to ED at the referral of nephrology secondary to worsening CKD. Admitted with TRINA on CKD with creatinine went up to more than 3 on admission Discussed with customer project manager Has been receiving intravenous fluid as advised Clinically better today Creatinine level has gone down to 2.69 We will continue current intravenous fluid and hold off any Lasix and/or furosemide Advised to drink more fluid Creatinine is much better today at 2.39 Generalized weakness We will get PT and OT evaluation If reasonably well and if the creatinine has been improving we will discharge home tomorrow Weakness is improved and has been participating in PT and OT Wants to be discharged this afternoon (2) T2DM (type 2 diabetes mellitus): last a1c 6.9 03/2019 repeat a1c in a.m. Lantus/novolog per protocol (3) HTN (hypertension): blood pressure stable lisinopril recently held as outpt [address] Beltran due to worsened renal fxn and hyperkalemia hold lasix and continue to hold lisinopril, continue hydralazine and diltiazem If the blood pressure remains stable will not restart lisinopril for now (4) HLD (hyperlipidemia): continue statin (5) GISELE (obstructive sleep apnea): CPAP at HS (6) Gout: continue allopurinol (7) BPH (benign prostatic hyperplasia): continue doxazosin (8) DVT prophylaxis: SQ heparin Disposition: admit to tele Follow up: PCP Dr. Mcleod upon discharge and Dr. Beltran nephrology Discussed with customer project manager and possible discharge this afternoon Total Time Total Time Spent Total Time Spent (In Minutes): 35 minutes Total Time Includes: Examination of the Patient, Discharge Planning, Medication Reconciliation and Communication With Other Providers Discharge Plan Discharge Items Patient Disposition: Home - Self-Care Reason For Visit: A/C CKD 4 Discharge Diagnosis: Acute on chronic kidney disease Condition on Discharge: Good Activity: Resume your previous activity Non-emergency contact: Primary Care Provider Call non-emergency contact if: you have any medication questions and your symptoms worsen Follow-up/Referrals: Kavon Mcleod, [Primary Care Provider] - 01/12/20 12:20 pm (Your appointment is with Dr. Negron (Dr. Mcleod is not available)) Diet: Carb Consistent or DM2 and Low Potassium (2gm) Fluids: 1800ml (7 cups) Ambulatory Orders: Basic Metabolic Panel (Routine) Timeframe: 1 Week Location: Determined by Patient Ordered By: Shilpa Arboleda Attending Provider Instructions: You will not take your lisinopril until being told by your customer project manager You will not start your furosemide until being told by her customer project manager Pending Studies at Discharge: No Stand-Alone Forms: [facility], Smoking Cessation Medications and DC Order Prescriptions: Continued atorvastatin 10 mg Tablet 10 mg PO DAILY RF: 0 diltiazem HCl 300 mg Capsule,Extended Release 24 Hr 300 mg PO QPM RF: 0 hydralazine 100 mg Tablet 50 mg PO TID RF: 0 doxazosin 4 mg Tablet 8 mg PO HS RF: 0 allopurinol 300 mg Tablet 300 mg PO DAILY RF: 0 gabapentin 100 mg Capsule 100 mg PO BID RF: 0 fluticasone propionate 50 mcg/actuation [place],Suspension 2 spray INTRANASAL DAILY RF: 0 cholecalciferol (vitamin D3) [Vitamin D3] 25 mcg (1,000 unit) Tablet 2,000 unit PO DAILY RF: 0 Discontinued furosemide 20 mg Tablet 40 mg PO BID RF: 0 Discharge Orders: Discharge Order (Routine); Ordered 01/08/20 Ordered By: Shilpa Richardson/Other Patient Handouts: Long-Term Complications of Diabetes, Healthy Meals for Diabetes, Diabetes: The Benefits of Exercise, Managing Diabetes: The A1C Test Admission Data Admit Date/Time: 01/06/20 14:27 Attending Provider: Shilpa Mckeon Admit Provider: Shilpa Mckeon Primary Care Provider: Kavon Mcleod Other Providers: Shilpa Mckeon Other Interventions: Discharge Summary Assessment (RN) Last Done: 01/08/20 14:54 DC Date/Time DO NOT enter until pt leaves facility: 01/08/20 15:30
--- NOTE | 2020-01-21 06:11 | Coding Query ---
CODING QUERY To promote full compliance with coding requirements relating to patient care, provider participation is requested in all cases of medical biller coder uncertainty. Please assist us with the question(s) below: Please clarify the meaning of TRINA. TRINA is not a valid abbreviation. Thank you. ( ) Acute Kidney Injury ( ) Acute Kidney Insufficiency ( + ) Other (Specify):__AKI-Acute Kidney injury _until specifying Acute kidney/Renal Insufficiency Principal Diagnosis: "that condition established after study, to be chiefly responsible for occasioning the admission of the patient to the hospital for care." Co-Existing Principal Diagnosis: "when two or more diagnoses equally meet the criteria for principal diagnosis as determined by the circumstances of admission, diagnostic work up, and/or therapy provided, and the Alphabetic Index, Tabular List, or another coding guideline does not provide sequencing direction, any one of the diagnoses may be sequenced first." "When the physician has documented what appears to be a current diagnosis in the body of the record, but has not included the diagnosis in the final diagnostic statement, the physician should be asked whether the diagnosis should be added." (Source Coding [facility] 2 QTR90. p3-4) [facility]
== END 2020-01-08 15:30 | disposition home or self-care (01) | DRG 684 ==
LOC: ED 12:05 → 2W 14:27